=== PATIENT | male | born 1940 | race Caucasian/White ===

== ENCOUNTER 2018-11-06 00:55 | Inpatient (IN) | payer OTHER, MEDICARE ==
[2018-11-06 02:10] LABS: Absolute Lymphocytes (CBC) 0.1 K/uL (0.7-4.9); Basophils % 0.1 % (0-1.3); Hematocrit 32.2 % (39.6-49.0); Lymphocytes % 1.7 % (15.3-44.8); MPV 8.3 fL (7.6-11.3); RBC Red Blood Cell Count 3.58 M/uL (4.33-5.43)
[2018-11-06 02:11] LABS: Protime INR 1.38
[2018-11-06] MEDS ORDERED: D50W 25 GM/50 ML SYRINGE IV ONE ×2 (02:38→17:06)
[2018-11-06 02:53] LABS: Albumin 3.1 g/dL (3.4-5.0); Bilirubin Direct 0.7 mg/dL (0-0.2); Potassium 3.9 mmol/L (3.5-5.1); Troponin (Emerg Dept Use Only) 0.32 ng/mL (0.0-0.045)
--- NOTE | 2018-11-06 03:13 | EDPHYS ---
Physician Documentation [facility] Name: Vimal Matta Age: 77 yrs Sex: Male : 1940 Arrival Date: 11/06/2018 Time: 00:58 Bed 3 Private MD: ED Physician Altaf Ivy HPI: 11/06 02:49 This 77 yrs old Male presents to ER via EMS with complaints of Low Blood wa Sugar. 02:50 The patient presents with decreased mental status. Onset: The symptoms/episode wa began/occurred just prior to arrival. Possible causes: low blood sugar, the patient takes and oral hypoglycemic, the patient apparently forgot to eat. Associated signs and symptoms: Pertinent positives: weakness, Pertinent negatives: abdominal pain, chest pain, diarrhea, dizziness, headache. Current symptoms: In the emergency department the patient's symptoms have resolved, the patient is alert and fully oriented, has normal speech, has normal responsiveness. Patient's baseline: Neuro: alert and fully oriented, Motor: no deficits, Ambulation: walks without assistance, Speech: normal, The patient has a previous history of HTN and COPD. The patient has not experienced similar symptoms in the past. The patient has not recently seen a physician. pt noted s/p fall. EMS states pt noted on floor. BG noted 40. pt responded fully to D50 and became alert in route to ED. Historical: - Allergies: 01:06 No Known Allergies; ak1 - Home Meds: 01:06 atorvastatin oral oral [Active]; Glimepiride Oral [Active]; Lisinopril Oral [Active]; ak1 Metformin Oral [Active]; Metoprolol Tartrate Oral [Active]; - PMHx: 01:06 Diabetes - NIDDM; CHF; COPD; High Cholesterol; ak1 - PSHx: 01:06 Appendectomy; Hernia repair; ak1 - Immunization history:: Adult Immunizations unknown. - Social history:: Smoking status: Patient uses tobacco products, smokes one pack cigarettes per day. - Ebola Screening: : No symptoms or risks identified at this time. - Family history:: not pertinent. - Hospitalizations: : No recent hospitalization is reported. ROS: 02:53 Constitutional: Negative for fever, chills, and weight loss, Eyes: Negative for injury, wa pain, redness, and discharge, Neck: Negative for injury, pain, and swelling, Cardiovascular: Negative for chest pain, palpitations, and edema, Abdomen/GI: Negative for abdominal pain, nausea, vomiting, diarrhea, and constipation, Back: Negative for injury and pain, : Negative for injury, bleeding, discharge, and swelling, MS/Extremity: Negative for injury and deformity, Skin: Negative for injury, rash, and discoloration, Psych: Negative for depression, anxiety, suicide ideation, homicidal ideation, and hallucinations. 02:53 ENT: Positive for sinus congestion, Negative for ear pain. 02:53 Respiratory: Positive for cough, Negative for shortness of breath, sputum production. 02:53 Neuro: Positive for altered mental status, Negative for dizziness, headache. Exam: 02:54 Constitutional: This is a well developed, well nourished patient who is awake, alert, wa and in no acute distress. Head/Face: Normocephalic, atraumatic. Eyes: Pupils equal round and reactive to light, extra-ocular motions intact. Lids and lashes normal. Conjunctiva and sclera are non-icteric and not injected. Cornea within normal limits. Periorbital areas with no swelling, redness, or edema. ENT: Nares patent. No nasal discharge, no septal abnormalities noted. Tympanic membranes are normal and external auditory canals are clear. Oropharynx with no redness, swelling, or masses, exudates, or evidence of obstruction, uvula midline. Mucous membranes moist. Neck: Trachea midline, no thyromegaly or masses palpated, and no cervical lymphadenopathy. Supple, full range of motion without nuchal rigidity, or vertebral point tenderness. No Meningismus. Chest/axilla: Normal chest wall appearance and motion. Nontender with no deformity. No lesions are appreciated. Cardiovascular: Regular rate and rhythm with a normal S1 and S2. No gallops, murmurs, or rubs. Normal PMI, no JVD. No pulse deficits. Abdomen/GI: Soft, non-tender, with normal bowel sounds. No distension or tympany. No guarding or rebound. No evidence of tenderness throughout. Back: No spinal tenderness. No costovertebral tenderness. Full range of motion. MS/ Extremity: Pulses equal, no cyanosis. Neurovascular intact. Full, normal range of motion. Neuro: Awake and alert, GCS 15, oriented to person, place, time, and situation. Cranial nerves II-XII grossly intact. Motor strength 5/5 in all extremities. Sensory grossly intact. Cerebellar exam normal. Normal gait. Psych: Awake, alert, with orientation to person, place and time. Behavior, mood, and affect are within normal limits. 02:54 Respiratory: the patient does not display signs of respiratory distress, Respirations: normal, Breath sounds: wheezing: that is mild, is scattered, Respiratory rate: nml 02:54 Neuro: Orientation: is normal, Mentation: is normal, Cranial nerves: grossly normal, Motor: is normal. Vital Signs: 01:01 BP 138 / 77; Pulse 100; Resp 24; Temp 98.1(TE); Pulse Ox 95% on R/A; Weight 72.57 kg ak1 (R); Height 5 ft. 10 in. (177.80 cm); Pain 0/10; 01:30 BP 129 / 83; Pulse 52; Resp 22; Pulse Ox 91% on R/A; ak1 01:54 Pulse 85; Resp 22; Pulse Ox 93% on 2 lpm NC; ak1 02:43 BP 111 / 75; Pulse 97; Resp 18; Pulse Ox 94% on 2 lpm NC; Pain 0/10; ak1 04:09 BP 126 / 57; Pulse 77; Resp 20; Temp 98.2; Pulse Ox 91% on 2 lpm NC; Pain 0/10; ak1 01:01 Body Mass Index 22.96 (72.57 kg, 177.80 cm) ak1 MDM: 01:11 Patient medically screened. wv 03:02 Differential Diagnosis: CVA, electrolyte abnormality, hypoglycemia, sepsis, UTI. Data wv reviewed: nurses notes, EMS record, lab test result(s), EKG, radiologic studies. 03:02 Test interpretation: by ED physician or midlevel provider: EKG: interp by nm: HR 86. wa multiple PVCs. diffuse ST-T changes. . Test interpretation: by ED physician or midlevel provider: labs noted for low Na of 132. renal insuff 38/1.61. elevated liver enzymes AST 125, ALT 96. anemia 11.0/32.2. low plt 119. elevated troponin 0.32. BNP 79069. CXR: cardiomegaly. CHF. Response to treatment: the patient's symptoms have mildly improved after treatment. Physician consultation: Barb Gamino MD. Admission orders: after a detailed discussion of the patient's condition and case, the admit orders are written by me. ED course: hypoglycemia on glymeperide. noted decreased glucose required another round of D50. given a meal. will admit due to hypoglycemia on sulfonylurea. noted CHF. noted NSTEMI. will give a dose of lovenox. 03:37 Test interpretation: by ED physician or midlevel provider: noted bandemia. will cover wa with a dose of abx. will check blood cultures. 11/06 01:00 Order name: glucometer results - FOR PT WITH NO ID; Complete Time: 02:56 em1 11/06 01:42 Order name: Basic Metabolic Panel; Complete Time: 02:56 wv 11/06 01:42 Order name: CBC with Diff wv 11/06 01:42 Order name: LFT's; Complete Time: 02:57 wv 11/06 01:42 Order name: Magnesium; Complete Time: 02:58 wv 11/06 01:42 Order name: NT PRO-BNP; Complete Time: 02:57 wv 11/06 01:42 Order name: PT-INR; Complete Time: 02:58 wv 11/06 01:42 Order name: Troponin (emerg Dept Use Only); Complete Time: 02:58 wv 11/06 02:19 Order name: Manual Differential [facility] 11/06 02:50 Order name: Flu wv 11/06 03:39 Order name: Troponin I [facility] 11/06 03:39 Order name: Troponin I [facility] 11/06 03:39 Order name: Troponin I [facility] 11/06 03:44 Order name: Glucose, Ancillary Testing [facility] 11/06 01:42 Order name: XRAY Chest (1 view) wv 11/06 01:42 Order name: EKG; Complete Time: 01:44 wv 11/06 01:42 Order name: Cardiac monitoring; Complete Time: 01:54 wv 11/06 01:42 Order name: EKG - Nurse/Tech; Complete Time: 01:42 wv 11/06 01:42 Order name: IV Saline Lock; Complete Time: 01:43 wv 11/06 01:42 Order name: Labs collected and sent; Complete Time: 01:54 wv 11/06 01:42 Order name: O2 Per Protocol; Complete Time: 01:43 11/06 01:42 Order name: O2 Sat Monitoring; Complete Time: 01:43 11/06 03:39 Order name: Consistent Carb (ADA) 1800 Bhupinder EDMS 11/06 01:42 Order name: Oxygen; Complete Time: 01:42 wv 11/06 02:19 Order name: Accucheck Blood Glucose; Complete Time: 02:33 Administered Medications: 02:41 Drug: D50W 50 ml Route: IVP; Site: left antecubital; ak1 03:07 Follow up: Response: No adverse reaction ak1 02:49 CANCELLED (Physician Discretion): D50W 50 ml IVP once; (1 amp) 03:25 Drug: Lovenox 70 mg Route: Sub-Q; Site: right lower abdomen; ak1 03:43 Follow up: Response: No adverse reaction ak1 03:25 Drug: Lasix 40 mg Route: IVP; Site: left antecubital; ak1 03:44 Follow up: Response: No adverse reaction ak1 03:26 Drug: Aspirin Chewable Tablet 324 mg Route: PO; ak1 03:43 Follow up: Response: No adverse reaction ak1 03:58 Drug: Rocephin - (cefTRIAXone) 2 grams Route: IVPB; Infused Over: 30 mins; Site: left ak1 antecubital; 04:17 Follow up: IV Status: Completed infusion; IV Intake: 100ml ak1 04:17 Drug: Zithromax 500 mg Route: IVPB; Infused Over: 1 hrs; Site: left antecubital; ak1 04:47 Follow up: IV Status: Infusion continued upon admission ak1 Point of Care Testing: Blood Glucose: 02:33 Blood Glucose: 56 mg/dL; ak1 04:55 Blood Glucose: 166 mg/dL; ak1 Ranges: Critical Glucose Levels:Adult <50 mg/dl or >400 mg/dl <40 mg/dl or >180 mg/dl Disposition: 11/06/18 03:10 Hospitalization ordered by Fredy Clemens for Inpatient Admission. Preliminary diagnosis are acute AMS, hypoglycemia - on sulfonylurea, CHF, NSTEMI. - Bed requested for Telemetry/MedSurg (Inpatient). - Status is Inpatient Admission. ak1 - Condition is Stable. - Problem is new. - Symptoms have improved. UTI on Admission? No Signatures: Dispatcher [employer] EDDC Jaky Lomeli RN RN ak1 Mei Galindo RN RN Altaf Ivy MD MD wv Corrections: (The following items were deleted from the chart) 02:49 02:48 D50W 50 ml IVP once; (1 amp) ordered. [facility] 03:42 03:10 Hospitalization Ordered by Fredy Clemens MD for Inpatient Admission. Preliminary cg diagnosis is acute AMS; hypoglycemia - on sulfonylurea; CHF; NSTEMI. Bed requested for Telemetry/MedSurg (Inpatient). Status is Inpatient Admission. Condition is Stable. Problem is new. Symptoms have improved. UTI on Admission? No. wv 05:03 03:42 11/06/2018 03:10 Hospitalization Ordered by Fredy Clemens MD for Inpatient ak1 Admission. Preliminary diagnosis is acute AMS; hypoglycemia - on sulfonylurea; CHF; NSTEMI. Bed requested for Telemetry/MedSurg (Inpatient). Status is Inpatient Admission. Condition is Stable. Problem is new. Symptoms have improved. UTI on Admission? No. cg
--- NOTE | 2018-11-06 03:13 | ER ---
Nurse's Notes [facility] Name: Vimal Matta Age: 77 yrs Sex: Male : 1940 Arrival Date: 11/06/2018 Time: 00:58 Bed 3 Private MD: Diagnosis: acute AMS;hypoglycemia - on sulfonylurea;CHF;NSTEMI Presentation: 11/06 01:02 Presenting complaint: EMS states: pt was found on the floor between his bed and the ak1 wall. pt was A\T\OX 0 per EMS with a FSBG 45. D10 25 grams was given. pt was given 1 gram tylenol PO. pt was given 500mL NS. pt A\T\OX4 at this time. with FSBG 132 in ER3. Transition of care: patient was not received from another setting of care. Onset of symptoms is unknown. Risk Assessment: Do you want to hurt yourself or someone else? Patient reports no desire to harm self or others. Initial Sepsis Screen: Does the patient meet any 2 criteria? No. Patient's initial sepsis screen is negative. Does the patient have a suspected source of infection? No. Patient's initial sepsis screen is negative. Care prior to arrival: None. Medication(s) given:. 01:02 Method Of Arrival: EMS: [facility] ak 01:02 Acuity: DIANELYS 3 ak1 Triage Assessment: 01:06 General: Appears in no apparent distress. slender, Behavior is calm, cooperative, ak1 appropriate for age. Pain: Denies pain. EENT: No signs and/or symptoms were reported regarding the EENT system. Neuro: Level of Consciousness is awake, alert, obeys commands, Oriented to person, place, time, situation, Retail Coverage Merchandiser are equal bilaterally Moves all extremities. Gait is steady, Speech is normal. Cardiovascular: Patient's skin is warm and dry. Rhythm is sinus tachycardia. Respiratory: Airway is patent Respiratory effort is labored, Breath sounds are coarse. GI: No signs and/or symptoms were reported involving the gastrointestinal system. : No signs and/or symptoms were reported regarding the genitourinary system. Derm: No signs and/or symptoms reported regarding the dermatologic system. Musculoskeletal: No signs and/or symptoms reported regarding the musculoskeletal system. Historical: - Allergies: 01:06 No Known Allergies; ak1 - Home Meds: 01:06 atorvastatin oral oral [Active]; Glimepiride Oral [Active]; Lisinopril Oral [Active]; ak1 Metformin Oral [Active]; Metoprolol Tartrate Oral [Active]; - PMHx: 01:06 Diabetes - NIDDM; CHF; COPD; High Cholesterol; ak1 - PSHx: 01:06 Appendectomy; Hernia repair; ak1 - Immunization history:: Adult Immunizations unknown. - Social history:: Smoking status: Patient uses tobacco products, smokes one pack cigarettes per day. - Ebola Screening: : No symptoms or risks identified at this time. - Family history:: not pertinent. - Hospitalizations: : No recent hospitalization is reported. Screenin:08 Abuse screen: Denies threats or abuse. Denies injuries from another. Nutritional ak1 screening: No deficits noted. Tuberculosis screening: No symptoms or risk factors identified. Fall Risk None identified. Assessment: 01:07 Reassessment: Patient appears in no apparent distress at this time. No changes from ak1 previously documented assessment. see triage assessment. 02:42 Reassessment: pt given sandwich, soda, chips and fruit to eat for blood sugar lows. ak1 03:27 Reassessment: Patient appears in no apparent distress at this time. No changes from ak1 previously documented assessment. Patient and/or family updated on plan of care and expected duration. Pain level reassessed. Patient is alert, oriented x 3, equal unlabored respirations, skin warm/dry/pink. pt ate 75% of meal given. pt given urinal. at bedside. Patient states feeling better. Vital Signs: 01:01 BP 138 / 77; Pulse 100; Resp 24; Temp 98.1(TE); Pulse Ox 95% on R/A; Weight 72.57 kg ak1 (R); Height 5 ft. 10 in. (177.80 cm); Pain 0/10; 01:30 BP 129 / 83; Pulse 52; Resp 22; Pulse Ox 91% on R/A; ak1 01:54 Pulse 85; Resp 22; Pulse Ox 93% on 2 lpm NC; ak1 02:43 BP 111 / 75; Pulse 97; Resp 18; Pulse Ox 94% on 2 lpm NC; Pain 0/10; ak1 04:09 BP 126 / 57; Pulse 77; Resp 20; Temp 98.2; Pulse Ox 91% on 2 lpm NC; Pain 0/10; ak1 01:01 Body Mass Index 22.96 (72.57 kg, 177.80 cm) ak1 ED Course: 00:58 Patient arrived in ED. ak1 01:04 Triage completed. ak1 01:06 Arm band placed on Patient placed in an exam room, on a stretcher, on pulse oximetry. ak1 01:07 Maintain EMS IV. Dressing intact. Good blood return noted. Site clean \T\ dry. Gauge \T\ ak 1 site: 18g left AC. 01:08 Patient has correct armband on for positive identification. Bed in low position. Call ak1 light in reach. Side rails up X2. Adult w/ patient. Pulse ox on. NIBP on. 01:11 Altaf Ivy MD is Attending Physician. wa 01:19 aJky Lomeli, SONA is Primary Nurse. ak1 02:52 XRAY Chest (1 view) In Process Unspecified. EDMS 03:09 Fredy Clemens MD is Hospitalizing Provider. wa 03:23 Flu and/or RSV swab sent to lab. em1 04:01 Patient admitted, IV remains in place. ak1 04:01 No provider procedures requiring assistance completed. ak1 Administered Medications: 02:41 Drug: D50W 50 ml Route: IVP; Site: left antecubital; ak1 03:07 Follow up: Response: No adverse reaction ak1 02:49 CANCELLED (Physician Discretion): D50W 50 ml IVP once; (1 amp) wa 03:25 Drug: Lovenox 70 mg Route: Sub-Q; Site: right lower abdomen; ak1 03:43 Follow up: Response: No adverse reaction ak1 03:25 Drug: Lasix 40 mg Route: IVP; Site: left antecubital; ak1 03:44 Follow up: Response: No adverse reaction ak1 03:26 Drug: Aspirin Chewable Tablet 324 mg Route: PO; ak1 03:43 Follow up: Response: No adverse reaction ak1 03:58 Drug: Rocephin - (cefTRIAXone) 2 grams Route: IVPB; Infused Over: 30 mins; Site: left ak1 antecubital; 04:17 Follow up: IV Status: Completed infusion; IV Intake: 100ml ak1 04:17 Drug: Zithromax 500 mg Route: IVPB; Infused Over: 1 hrs; Site: left antecubital; ak1 04:47 Follow up: IV Status: Infusion continued upon admission ak1 Point of Care Testing: Blood Glucose: 02:33 Blood Glucose: 56 mg/dL; ak1 04:55 Blood Glucose: 166 mg/dL; ak1 Ranges: Intake: 04:17 IV: 100ml; Total: 100ml. ak1 Outcome: 03:10 Decision to Hospitalize by Provider. wa 04:01 Admitted to Tele accompanied by tech, via wheelchair, with oxygen, with chart. ak1 04:01 Condition: improved 04:01 Instructed on the need for admit. 05:03 Patient left the ED. ak1 Signatures: Dispatcher [employer] Ace Luz em1 Jaky Lomeli, SONA RN ak1 Altaf Ivy MD MD nh
[2018-11-06] MEDS ORDERED: ASPIRIN 81 MG CHEWABLE TABLET ONE (03:21)
[2018-11-06] MEDS ORDERED: ENOXAPARIN 80 MG/0.8 ML SQ ONE (03:21)
[2018-11-06] MEDS ORDERED: FUROSEMIDE 40 MG/4 ML VIAL ONE (03:21)
[2018-11-06 03:32] LABS: Blood Morphology Comment NOTED (NOT SEEN); Platelet Estimate ADEQ
[2018-11-06] MEDS ORDERED: ALBUTEROL 2.5 MG/3 ML NEB SOL NEB PRN ×2 (03:34→14:00)
[2018-11-06] MEDS ORDERED: IPRATROPIUM BROM 0.5MG/2.5ML NEB PRN ×2 (03:34→14:00)
[2018-11-06] MEDS ORDERED: NA CHLORIDE 0.9% 100 ML IV ONE (03:52)
[2018-11-06] MEDS ORDERED: CEFTRIAXONE 1000 MG/VIAL ONE (03:52)
[2018-11-06] MEDS ORDERED: NA CHLORIDE 0.9% 0 ML ONE (03:53)
[2018-11-06] MEDS ORDERED: AZITHROMYCIN 500 MG INJ IVPB ONE (03:53)
[2018-11-06] MEDS ORDERED: NA CHLORIDE 0.9% 250 ML ONE (03:54)
[2018-11-06 05:17] VITALS: BMI 24.2
[2018-11-06] MEDS ORDERED: GLIMEPIRIDE 2 MG TABLET PO SCH (08:00)
[2018-11-06] MEDS: ENOXAPARIN 40 MG/0.4 ML SQ SCH ×2 (08:39→19:25)
--- NOTE | 2018-11-06 08:57 | RAD REPORT ---
EXAM DESCRIPTION: RAD - Chest Single View - 11/06/2018 2:51 am CLINICAL HISTORY: Shortness of breath, altered mental status, history of CHF and COPD, hypoglycemia COMPARISON: None. TECHNIQUE: AP portable chest image was obtained 0203 hours . FINDINGS: Exam is motion degraded limiting assessment. Left upper lobe infiltrate is not excluded an d can be re-evaluated with follow-up imaging to clear motion artifact. Right lung garibay appear clear . Cardiomegaly is present. Acute vascular engorgement is not seen. Trachea is midline. No pneumothorax is present. No large pleural effusion identified. No acute bony abnormality seen. No acute aortic fi ndings suspected. IMPRESSION: Cardiomegaly without other findings of significant failure or volume overload. Motion degradation limits assessment. A left upper lobe early infiltrate is not excluded.
[2018-11-06] MEDS ORDERED: ASPIRIN 325 MG TAB PO SCH (09:00)
[2018-11-06] MEDS ORDERED: LISINOPRIL 10 MG TAB PO SCH (09:00)
[2018-11-06 10:33] LABS: Urine Appearance CLOUDY; Urine Bilirubin NEGATIVE (NEG); Urine Blood 1+ (NEG); Urine Color YELLOW; Urine Glucose NEGATIVE (NEG); Urine Protein TRACE (NEG); Urine Urobilinogen 0.2 mg/dL (0.2-1.0)
[2018-11-06 11:04] LABS: Urine Microscopic Reflex ORDER UMIC
[2018-11-06 11:05] LABS: Urine Bacteria 20-50 /HPF (NONE SEEN); Urine Culture Reflex Order REFLEXED; Urine Mucus SLIGHT /HPF (NONE SEEN); Urine RBC <5 /HPF (NONE SEEN)
--- NOTE | 2018-11-06 12:54 | RAD REPORT ---
EXAM DESCRIPTION: US - Abdomen Exam Complete - 11/06/2018 12:43 pm CLINICAL HISTORY: Fall, AMS, Hypoglycemia COMPARISON: No comparisons None. FINDINGS: Gallbladder size is normal. No gallstones, wall thickening or pericholecystic fluid. Commo n bile duct is normal with no common duct stone identified. Liver and spleen are normal in size and show no suspicious findings. A small round hyperechoic focus in the central spleen is present not regarded as significant. Small accessory splenic nodule present. The pancreas is normal. No hydronephrosis or suspicious mass in either kidney. Aorta is normal is size. No ascites or bulky lymphadenopathy. No IVC abnormality. Minimal amount of free fluid is seen adjacent to the liver in the right upper quadrant. IMPRESSION: No gallbladder or biliary tree abnormality. Minimal free fluid adjacent to the liver with no focal liver abnormality seen.
[2018-11-06] MEDS: FUROSEMIDE 20 MG TABLET PO SCH (12:57)
[2018-11-06] MEDS ORDERED: NA CHLORIDE 0.9% 1,000 ML IV SCH (13:00)
--- NOTE | 2018-11-06 13:17 | EKG ---
Test Date: 2018-11-06 Test Time: 01:07:00 Cook Dinner: SHANTHI MEASUREMENT RESULTS: Intervals: Rate: 86 OR: 116 QRSD: 108 QT: 414 QTc: 495 [place]: P: 82 OR: 116 QRS: 40 T: 64 INTERPRETIVE STATEMENTS: atrial fibrillationAnteroseptal infarct, age undetermined Abnormal ECG No previous ECG available for comparison Electronically Signed On 11-06-18 13:17:28 CDT by Daniel Gutierrez
[2018-11-06] MEDS ORDERED: ASPIRIN 81 MG CHEWABLE TABLET PO SCH (16:30)
--- NOTE | 2018-11-06 18:17 | P.HP ---
Certification for Inpatient Patient admitted to: Observation With expected LOS: <2 Midnights Practitioner: I am a practitioner with admitting privileges, knowledge of patient current condition, hospital course, and medical plan of care. Services: Services provided to patient in accordance with Admission requirements found in Title 42 Section 412.3 of the Code of Federal Regulations Patient History Date of Service: 11/06/18 Reason for admission: LOW GLUCOSE History of Present Illness: MR. 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 HE IS A DIABETIC AND HAS BEEN TRYING TO BRING GLUCOSE DOWN. HE HAD LOW GLUCOSE LAST NIGHT AND HE CAME HERE. HE DID NOT HAVE ANY MORE DYSPNEA THAN USUAL. HE DID NOT HAVE CHEST PAIN. ER ADMITTED HIM ALSO FOR NSTMI. Allergies No Known Allergies Allergy (Unverified 11/06/18 05:16) Home Medications: Atorvastatin Calcium 1 tab PO DAILY 11/06/18 Furosemide 1 tab PO DAILY 11/06/18 Glimepiride 1 tab PO DAILY 11/06/18 Levothyroxine Sodium 1 tab PO DAILY 11/06/18 Lisinopril 1 tab PO DAILY 11/06/18 Metoprolol Succinate 1 tab PO DAILY 11/06/18 - Past Medical/Surgical History Has patient received pneumonia vaccine in the past: Yes Diabetic: Yes -: DM NIDDM -: CHF -: High Cholesterol -: Prostate Cancer with radiation -: Appendectomy -: Hernia repair - Family History Mother -: Diabetes Father -: Heart disease, Kidney disease Brother -: Other (see notes) Notes: Bone problems - Social History Smoking Status: Current every day smoker CD- Drugs: No Caffeine use: Yes Place of Residence: Home Review of Systems 10-point ROS is otherwise unremarkable General: Weakness, Malaise Respiratory: Shortness of Breath (NO CHANGES FROM BEFORE.) Physical Examination - Vital Signs Temperature: 100.4 F Blood Pressure: 97/56 Pulse: 97 Respirations: 17 Pulse Ox (%): 94 - Physical Exam General: Mild distress HEENT: Atraumatic, PERRLA, Mucous membr. moist/pink, EOMI, Sclerae nonicteric Neck: Supple, 2+ carotid pulse no bruit, No LAD, Without JVD or thyroid abnormality Respiratory: Diminished Cardiovascular: Regular rate/rhythm, Normal S1 S2 Gastrointestinal: Normal bowel sounds, No tenderness Musculoskeletal: No tenderness Integumentary: No rashes Neurological: Normal gait, Normal speech, Normal strength at 5/5 x4 extr, Normal tone, Normal affect Lymphatics: No axilla or inguinal lymphadenopathy - Studies Laboratory Data (last 24 hrs) 11/06/18 01:35: PT 16.1 H, INR 1.38 11/06/18 01:35: WBC 5.9, Hgb 11.0 L, Hct 32.2 L, Plt Count 119 L 11/06/18 01:35: Sodium 132 L, Potassium 3.9, BUN 38 H, Creatinine 1.61 H, Glucose 80, Magnesium 2.0, Total Bilirubin 1.0, AST 125 H, ALT 96 H, Alkaline Phosphatase 118 H Microbiology Data (last 24 hrs): 11/06/18 03:20 Nasopharnyx Influenza Type A Antigen Screen - Final 11/06/18 03:20 Nasopharnyx Influenza Type B Antigen Screen - Final Assessment and Plan - Problems (Diagnosis) (1) Hypoglycemia Current Visit: Yes Status: Acute Plan: DIABETIC. USUALLY GOOD ON AMARYL. INFECTION MAY HAVE TRIGGERED LOW GLUCOSE EPISODES. (2) Bacterial pneumonia Current Visit: Yes Status: Acute Plan: BLOOD CULTURES TWO. LEVAQUIN IV TODAY. MAY NOT ABSORB WELL ORALLY. HAS CHF BY HISTORY. (3) Congestive cardiomyopathy Current Visit: Yes Status: Chronic Plan: ON LASIX. LISINOPRIL METOPROLOL. CXR SHOWS NO CHF. SOME MORE DYSPNEA. I WILL STOP FLUIDS FOR NOW. (4) Diabetes Current Visit: Yes Status: Acute Qualifiers: Diabetes mellitus type: type 2 Diabetes mellitus salvage determiner insulin use: without intermediate use Diabetes mellitus complication status: with circulatory complication - Advance Directives Does patient have a Living Will: Yes Does patient have a Durable POA for Healthcare: Yes
[2018-11-06] MEDS: METOPROLOL XL 25 MG TAB PO SCH (19:25)
[2018-11-06] MEDS: ATORVASTATIN 20 MG TAB PO SCH (19:25)
[2018-11-06] MEDS: IPRATROPIUM BROM 0.5MG/2.5ML NEB SCH (19:45)
[2018-11-06] MEDS: LEVALBUTEROL 0.63 MG/3 ML NEB NEB SCH (19:45)
[2018-11-06] MEDS: Levofloxacin 250mg IV 250 MG/50 ML BAG IV SCH (20:53)
[2018-11-06] MEDS ORDERED: ACETAMINOPHEN 325 MG TABLET PO PRN (21:16)
[2018-11-07] MEDS: IPRATROPIUM BROM 0.5MG/2.5ML NEB SCH ×4 (01:30→20:00)
[2018-11-07] MEDS: LEVALBUTEROL 0.63 MG/3 ML NEB NEB SCH ×4 (01:30→20:00)
[2018-11-07] MEDS: LEVOTHYROXINE SOD 0.075 MG TAB PO SCH (05:32)
[2018-11-07] MEDS: METOPROLOL XL 25 MG TAB PO SCH (05:33)
[2018-11-07] MEDS: D50W 25 GM/50 ML SYRINGE IV PRN ×2 (05:38→07:33)
--- NOTE | 2018-11-07 07:11 | EKG ---
Test Date: 2018-11-06 Test Time: 21:37:09 Refinery Pipeline Operator: RT MEASUREMENT RESULTS: Intervals: Rate: 99 ME: QRSD: 108 QT: 362 QTc: 464 [place]: P: ME: QRS: -4 T: 202 INTERPRETIVE STATEMENTS: Atrial fibrillation with premature ventricular or aberrantly conducted complexes Septal infarct, age undetermined ST & T wave abnormality, consider lateral ischemia or digitalis effect Abnormal ECG Compared to ECG 11/06/2018 21:36:34 Ventricular premature complex(es) now present Sinus rhythm no longer present Myocardial infarct finding still present ST (T wave) deviation still present Possible ischemia still present Electronically Signed On 11-07-18 07:10:42 CDT by Chandan Stringer
--- NOTE | 2018-11-07 07:11 | EKG ---
Test Date: 2018-11-06 Test Time: 21:36:34 Site Promotion Agent: RT MEASUREMENT RESULTS: Intervals: Rate: 91 NV: 116 QRSD: 104 QT: 370 QTc: 455 [place]: P: NV: 116 QRS: -3 T: 143 INTERPRETIVE STATEMENTS: Normal sinus rhythm Septal infarct, age undetermined ST & T wave abnormality, consider lateral ischemia Abnormal ECG Compared to ECG 11/06/2018 01:07:00 ST (T wave) deviation now present Possible ischemia now present Myocardial infarct finding still present Electronically Signed On 11-07-18 07:10:46 CDT by Chandan Stringer
[2018-11-07] MEDS: ENOXAPARIN 40 MG/0.4 ML SQ SCH ×2 (08:14→21:40)
[2018-11-07] MEDS: FUROSEMIDE 20 MG TABLET PO SCH (08:15)
[2018-11-07] MEDS: ASPIRIN EC 81 MG TAB PO SCH (08:15)
--- NOTE | 2018-11-07 09:49 | CON ---
Date of Consultation: 11/06/[address] Clemens's service on 11/06/2018. He was seen on 11/06/2018. Reason For Consultation: Altered mental status, hypoglycemia, and elevated troponin. History Of Present Illness: Mr. Matta is a 77-year-old white male. He is a patient of Dr. Clemens. He has a history of cardiomyopathy with an ejection fraction of about 25%. He has been followed by Dr. Pereira in [place]. He has been offered defibrillator, but he refused. He did not have any david st pain or shortness of breath, nausea, vomiting, or diaphoresis. He denied any PND, orthopnea, peda l edema, palpitations, or syncope. He just got slightly confused and noted to have hypoglycemia. Past Medical History: Includes hypertension, diabetes, dyslipidemia, hypothyroidism, chronic systoli c congestive heart failure, and COPD. Mr. Matta has had heart catheterization showing moderate cor onary artery disease of RCA, but no focal stenosis. Allergies: NONE. Review of Systems: Negative. Social History: Negative. Family History: Noncontributory. Medications: At home include Lasix, Lipitor, glimepiride, Synthroid, lisinopril, and metoprolol. Physical Examination: General: When I saw him, he was very pleasant, alert, and oriented x3. He is in atrial fibrillation HEENT: Negative. Neck: Supple without any bruit, lymphadenopathy, JVD, or thyromegaly. Chest: Clear to auscultation and percussion. Cardiac: Revealed atrial fibrillation. No murmurs, gallops, or rubs. Abdomen: Benign. Extremities: Revealed no clubbing, cyanosis, or edema. NEUROLOGIC: Nonfocal. SKIN: Dry and intact. Pulses are present bilaterally distally. Diagnostic Data: Showed mild increase in liver function tests. He had a normal white count with 10% bands consistent with a left shift. His creatinine is 1.61. He was hyponatremic. His troponin was 0.96 and 1.01. His BNP was 82,524. Impression And Plan: 1.Chronic systolic congestive heart failure that seems to be stable. I agree with his present medic al regimen which includes lisinopril, metoprolol, and Lasix, although I am wondering he is not on Ent lisa. I will check with Dr. Clemens. He has an ejection fraction of 20% to 25% but he is very hesita nt without a defibrillator. We addressed that issue with him and his family who are was in the room. I think he will benefit greatly from a defibrillator. Again, Entresto may be a good option as well . The other concern is atrial fibrillation. I am not so sure if this is plan . I will di scuss the case with Dr. Clemens further. For now, I believe some gentle hydration may be beneficial __ that is concerning. He has already received 1 dose of antibiotics. An echocardiogram is pe nding for tomorrow. We will see what that shows, but I am comfortable with him going home tomorrow a nd follow him with Dr. Pereira in the near future. NICOLETTE/ULISES Voice ID: [id number] Report ID: [id number]
--- NOTE | 2018-11-07 09:56 | CON ---
History Of Present Illness: Mr. Matta came to the hospital because his blood sugar got low. He was unconscious, resuscitated with intravenous glucose. He was not having chest pain or shortness of breath, but he has abnormal troponins. At this time, it is 1.01. He has a very elevated internal proBNP. He is aware of having cardiomyopathy. 8 months ago, a cardiac cath was done. No stents or other interventions were done. The defibrillator was recommended to him. Apparently, the patient refused and he does have a history of an arrhythmia, but the patient is not able to tell us what kind of heart rhythm problem he has. He was in atrial fibrillation briefly when he came. Medications: His outpatient medications are metoprolol, lisinopril, levothyroxine, glimepiride, furosemide, and atorvastatin. Allergies: HE HAS NO ALLERGIES. Social History: He uses tobacco. Assessment And Plan: He has underlying diabetes, hypothyroidism, cardiomyopathy without significant CAD, transiet atrial fibrillation and transient hypoglycemia, probably related. His troponin elevation is of concern. I think his usual box order person from [place] would be better able to relate what is happening to the actual cath data and going from the verbal report from the patient, so perhaps Dr. Clemens could encourage the patient to see his box order person rapidly or even contact that physician and see what he thinks. I think he is probably ready to be discharged. His main reason for coming in was hypoglycemia that has resolved. SWEETIE/ULISES Voice ID: [id number] Report ID: [id number] KANE
--- NOTE | 2018-11-07 15:48 | ECHO ---
HEIGHT: 5 ft 10 in WEIGHT: 168 lb 14.4 oz DATE OF STUDY: 11/07/[address]: Daniel Gutierrez MD 2-DIMENSIONAL: YES M.MODE: YES DOPPLER: YES COLOR FLOW: YES TDS: NO PORTABLE: NO DEFINITY: NO BUBBLE STUDY: NO DIAGNOSIS: POSITIVE TROPONIN, ATRIAL FIBRILLATION CARDIAC HISTORY: CATHERIZATION: NO SURGERY: NO PROSTHETIC VALVE: NO PACEMAKER: NO MEASUREMENTS (cm) DIASTOLIC (NORMALS) SYSTOLIC (NORMALS) IVSd 1.0 (0.6-1.2) LA Diam 4.3 (1.9-4.0) LVEF 19% LVIDd 7.4 (3.5-5.7) LVIDs 6.7 (2.0-3.5) %FS 9% LVPWd 1.1 (0.6-1.2) Ao Diam 3.9 (2.0-3.7) 2 DIMENSIONAL ASSESSMENT: RIGHT ATRIUM: DILATED LEFT ATRIUM: DILATED RIGHT VENTRICLE: DILATED LEFT VENTRICLE: DILATED TRICUSPID VALVE: NORMAL MITRAL VALVE: NORMAL PULMONIC VALVE: NORMAL AORTIC VALVE: NORMAL PERICARDIAL EFFUSION: NONE AORTIC ROOT: NORMAL LEFT VENTRICULAR WALL MOTION: SEVERE GLOBAL HYPOKINSIS. DOPPLER/COLOR FLOW: MILD AORTIC, MITRAL AND TRICUSPID REGURGITATION. ESTIMATED RIGHT VENTRICULAR SYSTOLIC PRESSURE 50mmHg. MODERATE PULMONARY HYPERTENSION. COMMENTS: FOUR CHAMBER DILATATION. SEVERELY DEPRESSED LEFT VENTRICULAR EJECTION FRACTION. MILD AORTIC, MITRAL AND TRICUSPID REGURGITATION. MODERATE PULMONARY HYPERTENSION. TECHNOLOGIST: AIMEE JOHNSON
[2018-11-07] MEDS: Levofloxacin 250mg IV 250 MG/50 ML BAG IV SCH (21:40)
[2018-11-07] MEDS: ATORVASTATIN 20 MG TAB PO SCH (21:40)
[2018-11-08] MEDS: IPRATROPIUM BROM 0.5MG/2.5ML NEB SCH ×3 (02:00→13:15)
[2018-11-08] MEDS: LEVALBUTEROL 0.63 MG/3 ML NEB NEB SCH ×3 (02:00→13:15)
--- NOTE | 2018-11-08 02:24 | PN ---
Subjective: Patient is doing a lot better. He denies any chest pain, nausea, or vomiting. His hypo glycemia has improved. Physical Examination: Vital Signs: Blood pressure 111/61. Temperature today is afebrile. Pulse is 92. HEENT: Minimal JVD, which is chronic for him. Chest: Decreased breath sounds bilaterally. Heart: Regular. Abdomen: No guarding, no rebound, no rigidity. Assessment And Plannin.Hypoglycemia is resolved. I believe the hypoglycemia was because of the infection on top of his d iabetes, which is coming from pulmonary origin. 2.Congestive cardiomyopathy, EF of 19%. Managed by Dr. Pereira and Dr. Stringer at this point. He mcnamara s refused defibrillator and he has refused to do a coronary angiogram offered by Dr. Pereira before. He is stable currently with overall guarded prognosis. LITTLED/MODL Voice ID: [id number] Report ID: [id number]
[2018-11-08] MEDS: D50W 25 GM/50 ML SYRINGE IV PRN (04:30)
[2018-11-08 05:20] LABS: Absolute Lymphocytes (CBC) 0.2 K/uL (0.7-4.9); Basophils % 0.2 % (0-1.3); Hematocrit 33.1 % (39.6-49.0); Lymphocytes % 2.5 % (15.3-44.8); MPV 8.7 fL (7.6-11.3); RBC Red Blood Cell Count 3.71 M/uL (4.33-5.43)
[2018-11-08 05:46] LABS: Albumin 2.7 g/dL (3.4-5.0); Bilirubin Direct 0.5 mg/dL (0-0.2); Bilirubin Total 0.8 mg/dL (0.2-1.0); Potassium 3.9 mmol/L (3.5-5.1); Protein, Total 5.9 g/dL (6.4-8.2)
[2018-11-08] MEDS: METOPROLOL XL 25 MG TAB PO SCH (06:31)
[2018-11-08] MEDS: LEVOTHYROXINE SOD 0.075 MG TAB PO SCH (06:31)
[2018-11-08] MEDS ORDERED: SODIUM CHLORIDE 0.9% 10ML INJ IV SCH (07:00)
[2018-11-08] MEDS ORDERED: COSYNTROPIN 0.25 MG VIAL IV SCH (07:00)
[2018-11-08 08:34] VITALS: O2SAT 96
[2018-11-08] MEDS: ENOXAPARIN 40 MG/0.4 ML SQ SCH (08:37)
[2018-11-08] MEDS: ASPIRIN EC 81 MG TAB PO SCH (10:09)
[2018-11-08] MEDS: FUROSEMIDE 20 MG TABLET PO SCH (10:09)
[2018-11-08 12:12] VITALS: BP 107/52; TEMP 97.6
--- NOTE | 2018-11-08 12:59 | P.DS ---
Admission Date: 11/06/18 Discharge Date: 11/08/18 Disposition: ROUTINE DISCHARGE Discharge Condition: SERIOUS Reason for Admission: LOW GLUCOSE - Problems (1) Hypoglycemia Current Visit: Yes Status: Acute (2) Bacterial pneumonia Current Visit: Yes Status: Acute (3) Congestive cardiomyopathy Current Visit: Yes Status: Chronic (4) Diabetes Current Visit: Yes Status: Acute Qualifiers: Diabetes mellitus type: type 2 Diabetes mellitus manager long term care insulin use: without manager long term care use Diabetes mellitus complication status: with circulatory complication Brief History of Present Illness: MR. 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 HE IS A DIABETIC AND HAS BEEN TRYING TO BRING GLUCOSE DOWN. HE HAD LOW GLUCOSE LAST NIGHT AND HE CAME HERE. HE DID NOT HAVE ANY MORE DYSPNEA THAN USUAL. HE DID NOT HAVE CHEST PAIN. ER ADMITTED HIM ALSO FOR NSTMI. MR. ENGLISH IS LOT BETTER. HE IS STILL DYSPNEIC AT REST. HIS EF IF 20%. HE DOES NOT WANT DEFIBRILATOR OR CATH. DR. TAYLOR AND DR. BHAKTA HAS BOTH DISCUSSED WITH HIM. HE CAME FOR LOW GLUCOSE AND WAS FROM HAVING PNEUMONIA. HIS ACTH TEST IS NEGATIVE. HE IS STABLE TO GO HOME WITH ORAL ABX. AND REDUCED GLIMEPRIDE. FU IN ONE WEEK. Vital Signs/Physical Exam: Temp Pulse Resp BP Pulse Ox 97.6 F 62 22 H 107/52 L 99 11/08/18 12:00 11/08/18 12:00 11/08/18 12:00 11/08/18 12:00 11/08/18 12:00 Laboratory Data at Discharge: WBC 6.5 K/uL (4.3-10.9) 11/08/18 04:55 Hgb 11.8 g/dL (13.6-17.9) L 11/08/18 04:55 Hct 33.1 % (39.6-49.0) L 11/08/18 04:55 Plt Count 157 K/uL (152-406) D 11/08/18 04:55 PT 16.1 SECONDS (9.5-12.5) H 11/06/18 01:35 INR 1.38 11/06/18 01:35 Sodium 135 mmol/L (136-145) L 11/08/18 04:55 Potassium 3.9 mmol/L (3.5-5.1) 11/08/18 04:55 BUN 48 mg/dL (7-18) H 11/08/18 04:55 Creatinine 1.57 mg/dL (0.55-1.3) H 11/08/18 04:55 Glucose 133 mg/dL (74-106) H 11/08/18 04:55 Magnesium 2.0 mg/dL (1.8-2.4) 11/06/18 01:35 Total Bilirubin 0.8 mg/dL (0.2-1.0) 11/08/18 04:55 AST 137 U/L (15-37) H 11/08/18 04:55 ALT 107 U/L (12-78) H 11/08/18 04:55 Alkaline Phosphatase 132 U/L (45-117) H 11/08/18 04:55 Troponin I 1.01 ng/mL (0.0-0.045) H* 11/06/18 10:08 LDL Cholesterol Direct Cancelled 11/08/18 05:00 Home Medications: Atorvastatin Calcium 1 tab PO DAILY 11/06/18 Furosemide 1 tab PO DAILY 11/06/18 Levothyroxine Sodium 1 tab PO DAILY 11/06/18 Lisinopril 1 tab PO DAILY 11/06/18 Metoprolol Succinate 1 tab PO DAILY 11/06/18 Glimepiride 2 mg PO DAILY #90 tablet 11/08/18 levoFLOXacin [Levaquin*] 500 mg PO DAILY #5 tab 11/08/18 New Medications: Glimepiride 2 mg PO DAILY #90 tablet levoFLOXacin [Levaquin*] 500 mg PO DAILY #5 tab
== END 2018-11-08 14:40 | disposition home or self-care (01) | DRG 637 ==
LOC: ER 00:55 → ERHOLD 03:44 → 4TH 04:53
PROVIDERS: ADMIT Internal Medicine; ATTEND Internal Medicine
DX: E11.649 Type 2 diabetes mellitus with hypoglycemia without coma (principal); J15.9 Unspecified bacterial pneumonia; I42.0 Dilated cardiomyopathy; I50.22 Chronic systolic (congestive) heart failure; E03.9 Hypothyroidism, unspecified; I48.91 Unspecified atrial fibrillation; I11.0 Hypertensive heart disease with heart failure; I25.10 Atherosclerotic heart disease of native coronary artery without angina pectoris; J44.9 Chronic obstructive pulmonary disease, unspecified; Z85.46 Personal history of malignant neoplasm of prostate; F17.210 Nicotine dependence, cigarettes, uncomplicated
CPT/HCPCS: 36415; 71045; 76700; 80048; 80076; 81003; 81015; 82024; 82533; 82947; 82962; 83036; 83605; 83735; 83880; 84484; 85025; 85610; 87040; 87086; 87088; 87804; 93005; 93306; 94640; 96365; 96367; 96372; 96375; 99285; J0456; J0834; J1650; J1940

== ENCOUNTER 2018-12-15 11:07 | Inpatient (IN) | payer OTHER, MEDICARE ==
[2018-12-15] MEDS ORDERED: GLUCAGON 1 MG/VIAL IM PRN (11:51)
[2018-12-15] MEDS ORDERED: D50W 25 GM/50 ML SYRINGE IV PRN (11:51)
[2018-12-15] MEDS ORDERED: ACETAMINOPHEN 325 MG TABLET PO PRN (11:59)
[2018-12-15] MEDS ORDERED: LOPERAMIDE HCL 2 MG CAPSULE PO PRN (11:59)
[2018-12-15] MEDS ORDERED: POLYETHYL GLY 3350 17 GM/DOSE PO PRN (11:59)
[2018-12-15] MEDS ORDERED: DIPHENHYDRAMINE 25 MG TAB/CAP PO PRN (11:59)
[2018-12-15] MEDS ORDERED: ONDANSETRON 4 MG/2 ML VIAL IV PRN (12:04)
[2018-12-15 12:29] LABS: Absolute Lymphocytes (CBC) 0.4 K/uL (0.7-4.9); Basophils % 0.6 % (0-1.3); Hematocrit 38.2 % (39.6-49.0); Lymphocytes % 9.1 % (15.3-44.8); MPV 9.3 fL (7.6-11.3); RBC Red Blood Cell Count 4.19 M/uL (4.33-5.43)
[2018-12-15 12:30] VITALS: BMI 26.7
[2018-12-15 12:34] LABS: Protime INR 1.14
[2018-12-15] MEDS ORDERED: FUROSEMIDE 100 MG in D5W 90 ML IV SCH (13:00)
[2018-12-15] MEDS: FUROSEMIDE 100 MG in D5W 90 ML IV SCH ×2 (13:00→23:58)
--- NOTE | 2018-12-15 13:15 | RAD REPORT ---
EXAM DESCRIPTION: Royer Rubio (2 Views)12/15/2018 1:07 pm CLINICAL HISTORY: Cough COMPARISON: October 2018 FINDINGS: The lungs appear clear of acute infiltrate. The heart is markedly enlarged IMPRESSION: No acute abnormalities displayed
[2018-12-15 13:18] LABS: Albumin 3.5 g/dL (3.4-5.0); Bilirubin Direct 0.8 mg/dL (0-0.2); Bilirubin Total 1.3 mg/dL (0.2-1.0); Magnesium 2.3 mg/dL (1.8-2.4); Phosphorus 3.3 mg/dL (2.5-4.9); Potassium 4.7 mmol/L (3.5-5.1); Protein, Total 6.4 g/dL (6.4-8.2)
[2018-12-15 13:22] LABS: Thyroid Stimulating Hormone 12.8 uIU/mL (0.360-3.740)
--- NOTE | 2018-12-15 14:05 | RAD REPORT ---
EXAM DESCRIPTION: USExtrem Venous W Compress Bil12/15/2018 1:53 pm CLINICAL HISTORY: Bilateral leg swelling COMPARISON: none FINDINGS: The common femoral, superficial femoral, popliteal and posterior tibial veins bilaterally are compressible and demonstrate augmentation. Doppler demonstrates good flow. IMPRESSION: No evidence of deep venous thrombosis involving either lower extremity.
[2018-12-15] MEDS: LEVALBUTEROL 1.25 MG/3 ML NEB NEB SCH ×2 (14:15→20:00)
[2018-12-15] MEDS: IPRATROPIUM BROM 0.5MG/2.5ML NEB SCH ×2 (14:15→20:00)
--- NOTE | 2018-12-15 15:37 | RAD REPORT ---
EXAM DESCRIPTION: US - Renal Ultrasound-Complete - 12/15/2018 2:56 pm CLINICAL HISTORY: Acute kidney injury COMPARISON: None. FINDINGS: The right kidney measures 10.2 x 4.9 x 5.5 cm. The left kidney measures 10.0 x 5.4 x 5.1 cm. Renal cortical thickness and echogenicity are normal. Mild fullness of the right renal pelvis is present not believed to be hydronephrosis. No solid mass or other suspicious parenchymal finding. No bladder wall thickening or mass. No intraluminal stone or mass. Ascites is present only partially imaged. Partially imaged liver shows slightly nodular contour. IMPRESSION: No hydronephrosis or suspicious renal mass. No other significant renal findings. Ascites is present only partially imaged. Liver parenchymal disease is suspected but liver is not ful ly assessed.
[2018-12-15] MEDS: INSULIN -REGULAR HUMAN 50 UNIT/0.5 ML ML SQ SCH ×2 (16:47→21:00)
--- NOTE | 2018-12-15 18:12 | CON ---
Date of Consultation: 12/15/2018 Reason For Consultation: Elevated BUN and creatinine, anasarca. History Of Present Illness: This is a pleasant 77-year-old gentleman with significant past medical history of diabetes complicated with neuropathy, no retinopathy, hypertension, hyperlipidemia, congestive heart failure. No NM. Ejection fraction around 20%, as by the patient, hypothyroidism. Patient was in his regular state of health apparently for the last 3 weeks, patient started to have increased swelling in his both leg gradually. Patient gained around 20 pounds over the last 3 weeks, started having decrease in his exertional tolerance with orthopnea 3 pillows. For that reason, patient came to the hospital, found to be over volume, elevated BUN and creatinine. For that reason , we have been consulted. Reviewing the record for the patient back in October, creatinine 1.5, GFR of 43, which has been like that. Patient denied taking any nonsteroidal, no IV contrast. New lab for today is still pending. Past Medical History: 1. Diabetes complicated with neuropathy. No retinopathy. 2. Congestive heart failure, ejection fraction of 19%. 3. Prostate cancer, status post radiation. 4. Chronic kidney disease, baseline creatinine 1.5-1.6. GFR 43. Home Medications: Atorvastatin, Lasix, glimepiride, levothyroxine, lisinopril, metoprolol. Past Surgical History: Hernia repair, appendectomy. Family History: Positive for hypertension, coronary artery disease, kidney disease. Social History: Active smoker. Denied alcohol. Denied drugs abuse. Review of Systems: Head and Neck: No red eye. No ear pain. GI: Feeling bloated, increased abdominal girth. : No polyuria. No dysuria. No hematuria. BUSH REGENERATOR: Not applicable. Respiratory: Has shortness of breath. Cardiovascular: Has orthopnea. Has leg swelling. Endocrine: No polydipsia. Skin: No rash. Neurologic: Has neuropathy. Musculoskeletal: Generalized fatigue. Current Medications In The Hospital: Tylenol, Lasix drip, insulin, loperamide, Zofran. Physical Examination: Vital Signs: When I saw the patient; blood pressure 107/52, pulse of 62. Chest: Crackles bilateral base. Heart: S1, S2. Systolic murmur. Abdomen: Soft, ascites. Extremities: +3 edema. Neurologic: Alert and oriented x3. No focal. Laboratory Data: Doppler for the lower extremity, prominent atherosclerotic change both leg. Echocardiogram, ejection fraction of 19%. Chest x-ray, left upper lobe pneumonia, cardiomegaly without over volume. Assessment And Plan: 1. Chronic kidney disease with acute kidney injury, over volume, and anasarca. I going to agree with Lasix drip for the time being. We will go ahead and send for TSH, protein, creatinine, and we will monitor the patient. We will add low dose of metolazone and we will follow up. 2. Hyponatremia, dilutional. We will continue diuresis. 3. Chronic kidney disease with acute kidney injury, anasarca, as above. Mostly secondary to cardiorenal. 4. Congestive heart failure with exacerbation. We will continue on the Lasix drip. 5. Urinary tract infection. We will start the patient on antibiotic. We will follow up. 6- anasarca multifactorial : Cirrhosis / hypothyroidism /given the history of the porstat CA before local lymphoadenopathy pressure obstruction need to be R/o will sen for the CT Abd and pelvic, willl send for P/cr 7- Ascitis possible cardiorenal congestion liver : will send for the Hepatitis panal will consider diagnostic and therputic Paracentisis ROSEMARY/ULISES Voice ID: [id number] Report ID: [id number] MTDD
[2018-12-15] MEDS: AMOX/K CLAV 500 MG TAB PO SCH (20:55)
[2018-12-16 01:44] LABS: UR MICROALBUMIN 2.3 mg/dL (< 1.9)
[2018-12-16 01:59] LABS: UR PROTEIN < 5 mg/dL (<11.9); Urine Protein/Creatinine Ratio ND ratio (<0.15)
[2018-12-16] MEDS: IPRATROPIUM BROM 0.5MG/2.5ML NEB SCH ×4 (02:00→20:00)
[2018-12-16] MEDS: LEVALBUTEROL 1.25 MG/3 ML NEB NEB SCH ×4 (02:00→20:00)
[2018-12-16 02:25] LABS: Urine Appearance CLEAR; Urine Bilirubin NEGATIVE (NEG); Urine Blood NEGATIVE (NEG); Urine Color YELLOW; Urine Glucose NEGATIVE (NEG); Urine Protein NEGATIVE (NEG); Urine Urobilinogen 0.2 mg/dL (0.2-1.0)
[2018-12-16 03:22] LABS: Urine Bacteria <20 /HPF (NONE SEEN); Urine Culture Reflex Order NOT NEEDED; Urine RBC <5 /HPF (NONE SEEN)
[2018-12-16] MEDS: LEVOTHYROXINE SOD 0.125 MG TAB PO SCH (05:31)
[2018-12-16] MEDS: LEVOTHYROXINE SOD 0.05 MG TABLET PO SCH (05:31)
[2018-12-16 05:50] LABS: Absolute Lymphocytes (CBC) 0.5 K/uL (0.7-4.9); Basophils % 0.8 % (0-1.3); Hematocrit 36.9 % (39.6-49.0); Lymphocytes % 11.2 % (15.3-44.8); MPV 9.5 fL (7.6-11.3); RBC Red Blood Cell Count 4.09 M/uL (4.33-5.43)
[2018-12-16] MEDS ORDERED: HOME MED 1 EA UNK (Levothyroxine Sodium [Levothyroxine Sodium] 150 MCG) PO SCH (06:00)
[2018-12-16 06:01] LABS: Albumin 3.3 g/dL (3.4-5.0); Phosphorus 3.6 mg/dL (2.5-4.9); Potassium 4.5 mmol/L (3.5-5.1); Uric Acid 11.1 mg/dL (3.5-7.2)
[2018-12-16] MEDS ORDERED: LEVOTHYROXINE SOD 0.075 MG TAB PO SCH (06:30)
[2018-12-16] MEDS: INSULIN -REGULAR HUMAN 50 UNIT/0.5 ML ML SQ SCH ×4 (07:30→20:20)
--- NOTE | 2018-12-16 07:46 | EKG ---
Test Date: 2018-12-15 Test Time: 13:38:08 Planning Feeder: ANA MEASUREMENT RESULTS: Intervals: Rate: 84 ID: QRSD: [id number] QT: 438 QTc: 517 [place]: P: ID: QRS: [id number] T: -52 INTERPRETIVE STATEMENTS: Atrial fibrillation with premature ventricular or aberrantly conducted complexes Anterolateral infarct, age undetermined ST abnormality, possible inferior subendocardial injury Abnormal ECG Compared to ECG 11/06/2018 21:37:09 Myocardial infarct finding still present ST (T wave) deviation still present Electronically Signed On 12-16-18 07:45:47 CDT by Chandan Stringer
--- NOTE | 2018-12-16 08:53 | RAD REPORT ---
EXAM DESCRIPTION: CT - Abdomen Pelvis Wo Contrast - 12/16/2018 7:44 am CLINICAL HISTORY: Abdominal pain COMPARISON: None TECHNIQUE: Computed axial tomography of the abdomen and pelvis was obtained. IV and oral contrast we re not requested. All CT scans are performed using dose optimization technique as appropriate and may include automated exposure control or mA/KV adjustment according to patient size. FINDINGS: The evaluation of solid organs, vessels and bowel is limited secondary to the lack of con trast administration. The heart is enlarged. Small to moderate right and small left pleural effusions Small to moderate amount of ascites is present Edema throughout subcutaneous tissues and mesenteric. A renal mass is not seen. No hydronephrosis. Renal arterial calcifications. Small right inguinal hernia. Internal radiation beams cine. Prostatic tissue. The prostate gland is mildly enlarged. Diverticula stem from the colon without diverticulitis. No significant lymphadenopathy IMPRESSION: Small to moderate right pleural effusion. Small to moderate amount of ascites Anasarca
[2018-12-16] MEDS: PANTOPRAZOLE 40MG TABLET PO SCH (08:59)
[2018-12-16] MEDS: ATORVASTATIN 20 MG TAB PO SCH (08:59)
[2018-12-16] MEDS: ENOXAPARIN 30 MG/0.3 ML SQ SCH (08:59)
[2018-12-16] MEDS: ASPIRIN EC 81 MG TAB PO SCH (08:59)
[2018-12-16] MEDS: METOPROLOL XL 25 MG TAB PO SCH (08:59)
[2018-12-16] MEDS ORDERED: HOME MED 1 EA UNK (Omeprazole [Prilosec] 40 MG) PO SCH (09:00)
[2018-12-16] MEDS: AMOX/K CLAV 500 MG TAB PO SCH ×2 (09:00→20:18)
[2018-12-16] MEDS: GLIMEPIRIDE 2 MG TABLET PO SCH (09:00)
[2018-12-16] MEDS: METOLAZONE 2.5 MG TABLET PO SCH (09:00)
[2018-12-16] MEDS ORDERED: HOME MED 1 EA UNK (Glimepiride [Glimepiride] 2 MG) PO SCH (09:00)
[2018-12-16] MEDS: FUROSEMIDE 100 MG in D5W 90 ML IV SCH ×2 (09:01→20:18)
--- NOTE | 2018-12-16 11:06 | P.PN ---
Subjective Date of Service: 12/16/18 Subjective: Improving Pt with Hx of systolic CHF EF 20% , Hx of pericardial effusion, presented for edema and SOB Today feels much better , abdomen soft lost .10 lbs Monitor I/O will switch to lasix IVP tomorrow Cont Abx for 3 more days Physical Examination - Vital Signs Temperature: 97.8 F Blood Pressure: 118/57 Pulse: 93 Respirations: 18 Pulse Ox (%): 96 - Physical Exam General: In no apparent distress, Oriented x3 HEENT: Atraumatic Neck: Supple, JVD not distended Respiratory: Crackles/rales Cardiovascular: Regular rate/rhythm, Normal S1 S2, Edema, Systolic murmur Gastrointestinal: Normal bowel sounds, Soft and benign Musculoskeletal: Swelling - Studies Laboratory Data (last 24 hrs) 12/16/18 05:22: Sodium 143, Potassium 4.5, BUN 61 H, Creatinine 2.20 H, Glucose 96, Uric Acid 11.1 H, Phosphorus 3.6 12/16/18 05:16: WBC 4.6, Hgb 12.4 L, Hct 36.9 L, Plt Count 125 L 12/16/18 05:00: Uric Acid Cancelled 12/15/18 12:04: Sodium 141, Potassium 4.7, BUN 61 H, Creatinine 2.28 H, Glucose 191 H, Phosphorus 3.3, Magnesium 2.3, Total Bilirubin 1.3 H, AST 35, ALT 28, Alkaline Phosphatase 127 H 12/15/18 12:04: PT 13.4 H, INR 1.14, APTT 29.2 12/15/18 12:04: WBC 4.3, Hgb 12.7 L, Hct 38.2 L, Plt Count 130 L Assessment And Plan - Plan DAREN on CKD Cr 1.6 in October DAREN likely due to cardiorenal syndrome will cont lasix drip ane metolazone and switch to lasix IVP tomorrow salt and fluid restriction daily wt I/O Anasarca pt is non proteinuric , his edema is likely cardiac in etiology diuretics as above DM as per primary team Hypothyrodism on synthroid debility Cont PT/OT to cont Abx for total of 5 days
--- NOTE | 2018-12-16 20:04 | PN ---
Subjective: Mr. Matta is doing lot better. He has lost some weight. He understands now. He has to follow a salt-free diet. He eats a lot of salt he says, but he is trying to follow recommendation s now. He still smokes a few cigarettes a day and not able to quit. Physical Examination: Vital Signs: Blood pressure 94/51. Chest: Decreased breath sounds bilaterally. HEART: Regular. Abdomen: No guarding, no rebound, no rigidity. Extremities: Legs have a moderate edema, improved compared to yesterday. Laboratory Examination: Hemoglobin is 12.4, hematocrit 36, BUN 61, creatinine 2.20. Assessment And Plan: Congestive cardiomyopathy. Stop Entresto at this point. It did not really imp rove his condition. Might have gotten him worse. Lasix drip and midazolam off and on per see supervisor . He is not able to tolerate medication because the blood pressure dropped with diuretics. This is because of congestive cardiomyopathy. His prognosis remains overall poor. He refuses to do a defibr illator placement and recommended to do so before by 2 cardiologists. Prognosis is guarded. RVD/MODL Voice ID: [id number] Report ID: [id number]
[2018-12-17] MEDS: IPRATROPIUM BROM 0.5MG/2.5ML NEB SCH ×2 (02:00→08:00)
[2018-12-17] MEDS: LEVALBUTEROL 1.25 MG/3 ML NEB NEB SCH ×2 (02:00→08:00)
[2018-12-17 04:16] VITALS: O2SAT 97
[2018-12-17] MEDS: LEVOTHYROXINE SOD 0.05 MG TABLET PO SCH (05:33)
[2018-12-17] MEDS: FUROSEMIDE 100 MG in D5W 90 ML IV SCH (05:33)
[2018-12-17] MEDS: LEVOTHYROXINE SOD 0.125 MG TAB PO SCH (05:33)
--- NOTE | 2018-12-17 07:02 | EKG ---
Test Date: 2018-12-16 Test Time: 20:07:04 Quill Collector: RT-O MEASUREMENT RESULTS: Intervals: Rate: 88 TN: QRSD: 132 QT: 394 QTc: 476 [place]don: P: TN: QRS: -29 T: 157 INTERPRETIVE STATEMENTS: Atrial fibrillation with premature ventricular or aberrantly conducted complexes Left ventricular hypertrophy with QRS widening T wave abnormality, consider lateral ischemia or digitalis effect Anterior infarct Abnormal ECG Compared to ECG 12/15/2018 13:38:08 no significant change from previous ECG Electronically Signed On 12-17-18 07:02:24 CDT by Chandan Stringer
[2018-12-17 07:11] LABS: Albumin 3.4 g/dL (3.4-5.0); Phosphorus 3.6 mg/dL (2.5-4.9); Potassium 3.9 mmol/L (3.5-5.1)
[2018-12-17] MEDS: INSULIN -REGULAR HUMAN 50 UNIT/0.5 ML ML SQ SCH ×2 (07:30→11:30)
[2018-12-17] MEDS: METOLAZONE 2.5 MG TABLET PO SCH (08:41)
[2018-12-17] MEDS: METOPROLOL XL 25 MG TAB PO SCH (08:42)
[2018-12-17] MEDS: ASPIRIN EC 81 MG TAB PO SCH (08:42)
[2018-12-17] MEDS: ENOXAPARIN 30 MG/0.3 ML SQ SCH (08:42)
[2018-12-17] MEDS: ATORVASTATIN 20 MG TAB PO SCH (08:42)
[2018-12-17] MEDS: GLIMEPIRIDE 2 MG TABLET PO SCH (08:43)
[2018-12-17] MEDS: PANTOPRAZOLE 40MG TABLET PO SCH (08:43)
[2018-12-17] MEDS: AMOX/K CLAV 500 MG TAB PO SCH (08:50)
[2018-12-17] MEDS ORDERED: POTASSIUM CL SA 10 MEQ TAB PO ONE (09:00)
--- NOTE | 2018-12-17 09:56 | P.DS ---
Admission Date: 12/16/18 Discharge Date: 12/17/18 Disposition: ROUTINE DISCHARGE Discharge Condition: FAIR Hospital Course: MR. ENGLISH IS DOING WELL. HE IS DYSPNEIC WITH MINIMAL EXERSION, HIS EDMEA HAS IMPROVED. WE TALKED ABOUT DEFIBRILALTOR AGAIN. HE DOES NOT WANT IT. HE SAYS HE HAS HAD GOOD LIFE AND HE DOES NOT WANT TO PROLONG LIFE IN [facility]. HE WILL WATCH DIET. HE HAS BEEN GIVEN INSTRUCTIONS ON SALT RESTRICTION. HIS CREATITINE HAS IMPROVED. HE WILL BE ON LASIX, ZAROXOLYN, POTASSIUM AND WILL STOP ENTRESTO HE DID NOT DO WELL WITH IT. AFTER ENTRESTO OR HAVING SALTY FOOD HE GOT WORSE. HIS BP IS LOW ENOUGH NOT TOLERATE BETA KEE OR LOSARTAN. PROGNOSIS IS POOR. I TALKED TO THE FAMILY- AN SHE IS AWARE OF HIS POOR CONDITION. HE ALSO HAS TALKED TO HIS DAUGHTER AND THEY ARE AWARE. HE WANTS DNR STATUS. Vital Signs/Physical Exam: Temp Pulse Resp BP Pulse Ox 97.9 F 86 18 109/62 97 12/17/18 04:00 12/17/18 08:42 12/17/18 04:00 12/17/18 08:42 12/17/18 04:00 General: Alert, Mild distress HEENT: Atraumatic, PERRLA, EOMI Neck: Supple, JVD not distended Respiratory: Clear to auscultation bilaterally, Normal air movement Cardiovascular: Normal S1 S2, Edema Gastrointestinal: Normal bowel sounds, No tenderness Musculoskeletal: No tenderness Integumentary: No rashes Neurological: Normal speech, Normal tone, Normal affect Lymphatics: No axilla or inguinal lymphadenopathy Laboratory Data at Discharge: WBC 4.6 K/uL (4.3-10.9) 12/16/18 05:16 Hgb 12.4 g/dL (13.6-17.9) L 12/16/18 05:16 Hct 36.9 % (39.6-49.0) L 12/16/18 05:16 Plt Count 125 K/uL (152-406) L 12/16/18 05:16 PT 13.4 SECONDS (9.5-12.5) H 12/15/18 12:04 INR 1.14 12/15/18 12:04 APTT 29.2 SECONDS (24.3-36.9) 12/15/18 12:04 Sodium 142 mmol/L (136-145) 12/17/18 05:45 Potassium 3.9 mmol/L (3.5-5.1) 12/17/18 05:45 BUN 59 mg/dL (7-18) H 12/17/18 05:45 Creatinine 2.04 mg/dL (0.55-1.3) H 12/17/18 05:45 Glucose 47 mg/dL (74-106) L* 12/17/18 05:45 Uric Acid 11.1 mg/dL (3.5-7.2) H 12/16/18 05:22 Phosphorus 3.6 mg/dL (2.5-4.9) 12/17/18 05:45 Magnesium 2.1 mg/dL (1.8-2.4) 12/16/18 18:49 Total Bilirubin 1.3 mg/dL (0.2-1.0) H 12/15/18 12:04 AST 35 U/L (15-37) 12/15/18 12:04 ALT 28 U/L (12-78) 12/15/18 12:04 Alkaline Phosphatase 127 U/L (45-117) H 12/15/18 12:04 Home Medications: Aspirin [Adult Aspirin Regimen] 81 mg PO DAILY 12/15/18 Atorvastatin Calcium 20 mg PO DAILY 12/15/18 Glimepiride 2 mg PO DAILY 12/15/18 Levothyroxine Sodium 150 mcg PO [id number] 12/15/18 Metoprolol Succinate [Toprol Xl*] 25 mg PO DAILY 12/15/18 Omeprazole [Prilosec] 40 mg PO DAILY 12/15/18 Acetaminophen [Tylenol*] 650 mg PO Q6H PRN tab 12/17/18 Furosemide 20 mg PO DAILY #90 tablet 12/17/18 Insulin -Regular Human [Novolin -R*] See Protocol SQ ACHS ml 12/17/18 Potassium Chloride [Klor-Con M20] 20 meq PO BID #60 tab.er.prt 12/17/18 metOLazone [Zaroxolyn*] 2.5 mg PO DAILY #30 tab 12/17/18 New Medications: Furosemide 20 mg PO DAILY #90 tablet metOLazone [Zaroxolyn*] 2.5 mg PO DAILY #30 tab Potassium Chloride [Klor-Con M20] 20 meq PO BID #60 tab.er.prt
[2018-12-17 13:04] VITALS: BP 100/67; TEMP 97
--- NOTE | 2018-12-17 16:47 | CON ---
History Of Present Illness: Mr. Matta is in the hospital for congestive heart failure. He is know n to have a congestive cardiomyopathy. He refuses to consider doing any major interventions and with out formally doing so, has made himself do not resuscitate. He turns down all measures that might be helpful with his condition. He went into AFib briefly. I think he is now back in sinus rhythm, hea rt rate 86, AFib is not unexpected. The patient as an outpatient has been on Entresto, omeprazole, a spirin, metoprolol, levothyroxine, atorvastatin, and glimepiride. Physical Examination: Vital Signs: 5 feet 10 inches, 172 pounds. HEENT: Normal. Abdomen: Protuberant. It looks like he might have ascites, but I cannot really prove he has shiftin g dullness. Extremities: He has 2+ pedal edema bilaterally. These are all greatly improved since he has been he re. Assessment And Plan: His I's and O's indicate he has lost at least 14 pounds if not more like 20, al l from diuresis. I think the patient is ready for discharge at this point and I agree with Dr. Clemens 's discharge plan. Will be on furosemide, metolazone, potassium chloride. I think he should probabl y continue the Entresto and metoprolol as well and levothyroxine. SH/MODL Voice ID: [id number] Report ID: [id number]
[2018-12-19 08:47] LABS: Vitamin D 1,25-Dihydroxy Total 15 pg/mL (18-72); Vitamin D,1,25-OH2, D2 <8 pg/mL
[2018-12-20 03:06] LABS: HBsAG Nonreactive (Nonreactive)
[2018-12-20 16:01] LABS: Hepatitis C Virus RNA (PCR)log <1.18 log IU/mL
== END 2018-12-17 12:59 | disposition home or self-care (01) | DRG 291 ==
LOC: 2ND 11:32 → OBSVTOIN 12-16 12:04
PROVIDERS: ADMIT Internal Medicine; ATTEND Internal Medicine
DX: I13.0 Hypertensive heart and chronic kidney disease with heart failure and stage 1 through stage 4 chronic kidney disease, or unspecified chronic kidney disease (principal); I50.23 Acute on chronic systolic (congestive) heart failure; E87.1 Hypo-osmolality and hyponatremia; I42.0 Dilated cardiomyopathy; E11.22 Type 2 diabetes mellitus with diabetic chronic kidney disease; N18.9 Chronic kidney disease, unspecified; E03.9 Hypothyroidism, unspecified; Z85.46 Personal history of malignant neoplasm of prostate; F17.210 Nicotine dependence, cigarettes, uncomplicated; Z66 Do not resuscitate
CPT/HCPCS: 36415; 71046; 74176; 76770; 80048; 80069; 80076; 81001; 82043; 82570; 82607; 82652; 82947; 83036; 83735; 83880; 83930; 83935; 83970; 84100; 84132; 84156; 84300; 84439; 84443; 84550; 85025; 85379; 85610; 85730; 86317; 86704; 86706; 87040; 87070; 87205; 87340; 87522; 93005; 93970; 94640; G0378; G0379; J1650

== ENCOUNTER 2019-07-10 05:57 | Emergency (ER) | payer OTHER, MEDICARE ==
[2019-07-10 07:25] LABS: Urine Blood NEGATIVE (NEG); Urine Glucose NEGATIVE (NEG); Urine Protein 1+ (NEG)
[2019-07-10 08:37] VITALS: BP 126/66; O2SAT 100
--- NOTE | 2019-07-17 12:01 | ER ---
Nurse's Notes [facility] Name: Vimal Matta Age: 78 yrs Sex: Male : 1940 Arrival Date: 07/10/2019 Time: 06:04 Bed 6 Private MD: Diagnosis: Constipation;Unspecified abdominal pain Presentation: 07/09 06:19 Chief complaint: Patient states: Hernia pain related to no BM x6-7 days; States some lp1 nausea, shortness of breath; No relief with OTC medications for constipation. Coronavirus screen: Proceed with normal triage. Ebola Screen: No symptoms or risks identified at this time. Risk Assessment: Do you want to hurt yourself or someone else? Patient reports no desire to harm self or others. Onset of symptoms was July 10, 2019. 06:19 Method Of Arrival: Ambulatory lp1 06:19 Acuity: DIANELYS 3 lp1 06:19 Initial Sepsis Screen: Does the patient meet any 2 criteria? No. Patient's initial rr5 sepsis screen is negative. Does the patient have a suspected source of infection? Yes: Acute abdominal pain. Triage Assessment: 06:35 General: Appears in no apparent distress. uncomfortable, Behavior is calm. rr5 06:35 Pain: Complains of pain in abdomen Pain currently is 8 out of 10 on a pain scale. rr5 Quality of pain is described as aching, Pain began gradually, Is intermittent. Neuro: Level of Consciousness is awake, alert, obeys commands, Oriented to person, place, time, situation, Appropriate for age. Cardiovascular: Capillary refill < 3 seconds Patient's skin is warm and dry. Respiratory: Airway is patent Respiratory effort is even, unlabored, Respiratory pattern is regular, symmetrical. GI: Abdomen is distended, Abdomen is tender to palpation X 4 quads. Reports lower abdominal pain, upper abdominal pain, constipation, hernia. : No signs and/or symptoms were reported regarding the genitourinary system. Derm: Skin is intact, is healthy with good turgor, Skin temperature is warm. Musculoskeletal: Circulation, motion, and sensation intact. Capillary refill < 3 seconds. 06:35 EENT: No signs and/or symptoms were reported regarding the EENT system. rr5 Historical: - Allergies: 06:22 No Known Allergies; lp1 - Home Meds: 06:44 atorvastatin Oral [Active]; Furosemide Oral [Active]; Glimepiride Oral [Active]; rr5 levothyroxine oral [Active]; Klor-Con 10 Oral [Active]; Metoprolol Tartrate Oral [Active]; Acetaminophen-Codeine Oral [Active]; - PMHx: 06:22 CHF; COPD; Diabetes - NIDDM; High Cholesterol; lp1 - PSHx: 06:22 Hernia repair; lp1 - Immunization history:: Adult Immunizations up to date. - Social history:: Smoking status: Patient reports the use of cigarette tobacco products, smokes one-half pack cigarettes per day. Screenin:22 Abuse screen: Denies threats or abuse. Denies injuries from another. Nutritional lp1 screening: No deficits noted. Tuberculosis screening: No symptoms or risk factors identified. Fall Risk None identified. Assessment: 07:20 General: Appears in no apparent distress. comfortable, Behavior is calm, cooperative. iw Pain: Complains of pain in right inguinal area and abdomen. Neuro: Level of Consciousness is awake, alert, obeys commands, Oriented to person, place, time, situation, Moves all extremities. Full function. Cardiovascular: Patient's skin is warm and dry. Respiratory: Respiratory effort is even, unlabored, Respiratory pattern is regular, symmetrical. GI: Bowel sounds present X 4 quads. Reports constipation. GI: Abdomen is non-distended. GI: Abd is soft X 4 quads. Derm: Skin is intact, is healthy with good turgor. Musculoskeletal: Range of motion: intact in all extremities. 07:25 Reassessment: pt given warm blanket, pt then states "what are we waiting on", I iw explained to patient that he had labs sent and we are waiting on CT , pt states "I just want a gycerin, they always do fifteen different tests and all I need is a suppository". Pt states he had a recent CT and labs drawn and only wants a prescription, notified JETT Tapia. 07:30 Reassessment: JETT Tapia at bedside to speak with patient, pt requesting us to cancel iw labs and CT, lab notified. Vital Signs: 06:19 BP 126 / 66; Pulse 62; Resp 18; Pulse Ox 100% on R/A; Weight 74.84 kg (R); Height 5 ft. lp1 10 in. (177.80 cm); Pain 8/10; 06:19 Body Mass Index 23.67 (74.84 kg, 177.80 cm) lp1 ED Course: 06:04 Patient arrived in ED. bp1 06:07 Willie Smith NP is PHCP. pm1 06:07 Dong Bang DO is Attending Physician. pm1 06:07 Vimal Gill, SONA is Primary Nurse. rr5 06:20 Triage completed. lp1 06:20 Arm band placed on. lp1 06:20 Patient has correct armband on for positive identification. Bed in low position. Call rr5 light in reach. Pulse ox on. NIBP on. 06:40 Inserted saline lock: 20 gauge in right forearm, using aseptic technique. Blood rr5 collected. 07:09 Urine collected: clean catch specimen, clear. rr5 07:48 No provider procedures requiring assistance completed. IV discontinued, intact, iw bleeding controlled, No redness/swelling at site. Pressure dressing applied. 07:49 Primary Nurse role handed off by Vimal Gill RN iw 07:49 Janelle Mayorga RN is Primary Nurse. iw Administered Medications: No medications were administered Outcome: 07:32 Discharge ordered by MD. pm1 07:48 Discharged to home ambulatory. iw 07:48 Condition: unchanged 07:48 Discharge instructions given to patient, Instructed on discharge instructions, follow up and referral plans. medication usage, Demonstrated understanding of instructions, follow-up care, medications, Prescriptions given X 1. 07:49 Patient left the ED. iw Signatures: Janelle Mayorga RN RN iw Pat Jacob RN RN lp1 Willie Smith NP [employer]ICE pm1 Vimal Gill RN RN rr5 Rhina Dey bp1 Corrections: (The following items were deleted from the chart) 08:03 07:25 Reassessment: pt given warm blanket, pt then states "what are we waiting on", I iw explained to patient that he had labs sent and we are waiting on CT , pt states he had a recent CT and labs drawn and only wants a prescription for his constipation, notified JETT Tapia iw
--- NOTE | 2019-07-17 12:01 | EDPHYS ---
Physician Documentation [facility] Name: Vimal Matta Age: 78 yrs Sex: Male : 1940 Arrival Date: 07/10/2019 Time: 06:04 Bed 6 Private MD: ED Physician Dong Bang HPI: 07/09 06:34 This 78 yrs old Male presents to ER via Ambulatory with complaints of Hernia pm1 Pain, Abdominal Swelling, Constipation. 06:34 The patient presents with abdominal pain in right groin from hernia for the past 8 pm1 months. Constipation for the past 6-7 days. 06:34 Onset: The symptoms/episode began/occurred 8 month(s) ago, right groin hernia pain. pm1 Constipation for the past 6-7 days. The symptoms do not radiate. Associated signs and symptoms: Pertinent positives: constipation, nausea, vomited 3 days ago. PO consumption without difficulty since then, Pertinent negatives: chest pain, diarrhea, dysuria, fever, shortness of breath. The symptoms are described as achy. Modifying factors: The symptoms are alleviated by nothing, the symptoms are aggravated by nothing. Patient presents to the ER with complaint of constipation and abdominal pain. Patient has had right groin pain for the past 8 months due to a hernia. Has been evaluated by Dr. Waldron and was supposed to have hernia repair 6 weeks ago but was delayed. Patient reports constipation for the past 6-7 days. For the past two days has been taking over the counter laxatives without improvement. Historical: - Allergies: 06:22 No Known Allergies; lp1 - Home Meds: 06:44 atorvastatin Oral [Active]; Furosemide Oral [Active]; Glimepiride Oral [Active]; rr5 levothyroxine oral [Active]; Klor-Con 10 Oral [Active]; Metoprolol Tartrate Oral [Active]; Acetaminophen-Codeine Oral [Active]; - PMHx: 06:22 CHF; COPD; Diabetes - NIDDM; High Cholesterol; lp1 - PSHx: 06:22 Hernia repair; lp1 - Immunization history:: Adult Immunizations up to date. - Social history:: Smoking status: Patient reports the use of cigarette tobacco products, smokes one-half pack cigarettes per day. ROS: 06:36 Constitutional: Negative for fever, chills, and weight loss, Neck: Negative for injury, pm1 pain, and swelling, Cardiovascular: Negative for chest pain, palpitations, and edema. 06:36 Back: Negative for injury and pain, : Negative for injury, bleeding, discharge, and swelling, MS/Extremity: Negative for injury and deformity, Skin: Negative for injury, rash, and discoloration, Neuro: Negative for headache, weakness, numbness, tingling, and seizure. 06:36 Respiratory: Positive for shortness of breath, Negative for cough, wheezing. 06:36 Abdomen/GI: Positive for abdominal pain, constipation, nausea and vomiting 3 days ago, Negative for diarrhea. Exam: 06:36 Constitutional: This is a well developed, well nourished patient who is awake, alert, pm1 and in no acute distress. Head/Face: Normocephalic, atraumatic. Chest/axilla: Normal chest wall appearance and motion. Nontender with no deformity. No lesions are appreciated. 06:36 Back: No spinal tenderness. No costovertebral tenderness. Full range of motion. Skin: Warm, dry with normal turgor. Normal color with no rashes, no lesions, and no evidence of cellulitis. MS/ Extremity: Pulses equal, no cyanosis. Neurovascular intact. Full, normal range of motion. 06:36 Cardiovascular: Rate: normal, Rhythm: regular, Pulses: no pulse deficits are appreciated, Edema: is not appreciated. 06:36 Respiratory: Exam negative for acute changes, respiratory distress, shortness of breath. 06:36 Abdomen/GI: Inspection: abdomen appears normal, Palpation: abdomen is soft and non-tender, in all quadrants, Hernia: noted in the right inguinal area, incarceration, is not appreciated, tenderness, that is mild, Easily reduced. 06:36 Neuro: Exam negative for acute changes, Orientation: is normal, Mentation: is normal, Motor: is normal, Sensation: is normal. Vital Signs: 06:19 BP 126 / 66; Pulse 62; Resp 18; Pulse Ox 100% on R/A; Weight 74.84 kg (R); Height 5 ft. lp1 10 in. (177.80 cm); Pain 8/10; 06:19 Body Mass Index 23.67 (74.84 kg, 177.80 cm) lp1 MDM: 06:07 Patient medically screened. pm1 07:13 Data reviewed: vital signs. pm1 07:15 Refusal of service: The patient/guardian displays adequate decision making capability pm1 and despite a detailed discussion of alternatives, benefits, risks, and consequences refuses: CT Scan, all lab tests, Patient wants labs and CT canceled because he just had labs and a CT performed last week. I informed him of the plan of care, labs and a CT scan for evaluation of his abdominal pain and constipation at the end of my examination and he was agreeable to the plan. Now, the patient does not want the labs or CT. He just wants a glycerin suppository but does not want to have it administered here. He would like to take it home and self administer. Informed the patient we cannot dispense medications to be taken at home, but I would be happy to provide him a prescription for a laxative. Informed him that glycerin suppositories are available OTC. Therefore I will provide him with a prescription for a stronger laxative so he may use it if the glycerin suppository is not effective. 07/09 06:25 Order name: IV Saline Lock; Complete Time: 06:42 pm1 07/09 06:25 Order name: Labs collected and sent; Complete Time: 06:42 pm1 07/09 06:53 Order name: Urine Dipstick-Ancillary (obtain specimen); Complete Time: 07:09 pm1 07/09 07:16 Order name: Urine Dipstick-Ancillary; Complete Time: 07:34 EDMS Administered Medications: No medications were administered Disposition: 07/10/19 07:32 Discharged to Home. Impression: Constipation, Unspecified abdominal pain. - Condition is Stable. - Discharge Instructions: Abdominal Pain, Adult, Constipation, Adult. - Prescriptions for Lactulose 10 gram/15 mL Oral Solution - take 30 milliliter by ORAL route once daily; 300 milliliter. - Medication Reconciliation Form, Thank You Letter, Antibiotic Education, Prescription Opioid Use form. - Follow up: Emergency Department; When: As needed; Reason: Worsening of condition. Follow up: Private Physician; When: Upon discharge from the Emergency Department; Reason: Recheck today's complaints, Continuance of care, Re-evaluation by your physician. - Problem is new. - Symptoms are unchanged. Signatures: [facility] Janelle Mayorga RN RN Pat Jacob RN RN lp1 Willie Smith NP [employer] pm1 Vimal Gill, RN RN rr5 Corrections: (The following items were deleted from the chart) 06:48 06:34 The patient presents with abdominal pain in right groin from hernia pm1 pm1 07:18 07:12 Basic Metabolic Panel ordered. [facility] 07:18 07:12 Liver (Hepatic) Function ordered. [facility] 07:18 07:12 Lipase ordered. [facility] 07:20 07:13 CBC with Automated Diff ordered. [facility] 07:49 07:32 07/10/2019 07:32 Discharged to Home. Impression: Constipation; Unspecified iw abdominal pain. Condition is Stable. Forms are Medication Reconciliation Form, Thank You Letter, Antibiotic Education, Prescription Opioid Use. Follow up: Emergency Department; When: As needed; Reason: Worsening of condition. Follow up: Private Physician; When: Upon discharge from the Emergency Department; Reason: Recheck today's complaints, Continuance of care, Re-evaluation by your physician. Problem is new. Symptoms are unchanged. pm1
== END 2019-07-10 07:49 | disposition home or self-care (01) ==
LOC: ER 05:57
DX: K59.00 Constipation, unspecified (principal); E11.9 Type 2 diabetes mellitus without complications; E78.00 Pure hypercholesterolemia, unspecified; J44.9 Chronic obstructive pulmonary disease, unspecified; I50.9 Heart failure, unspecified; F17.210 Nicotine dependence, cigarettes, uncomplicated
CPT/HCPCS: 81003; 99283

== ENCOUNTER 2019-07-13 06:50 | Day surgery (SDC) | payer OTHER, MEDICARE ==
[2019-07-13] MEDS ORDERED: LIDOCAINE 4% TOP SOLUTION ONE (07:17)
[2019-07-13] MEDS ORDERED: Phenylephrine HCl 10 MG/ML 1 ML VIAL ONE (07:17)
[2019-07-13] MEDS ORDERED: NA CHLORIDE 0.9% 1,000 ML ONE (07:34)
[2019-07-13] MEDS ORDERED: LIDOCAINE VISCOUS 2% SOLN 15 ML UDC ONE (07:42)
[2019-07-13] MEDS ORDERED: LIDOCAINE 1% MPF 30 ML VIAL ONE (07:42)
[2019-07-13] MEDS ORDERED: D50W 25 GM/50 ML SYRINGE/VIAL IV ONE (07:56)
[2019-07-13 07:58] VITALS: TEMP 97.6; O2SAT 100
--- NOTE | 2019-07-13 09:02 | RAD REPORT ---
EXAM DESCRIPTION: RAD - FLUORO-GUIDE FOR BRONCH UPT1HR - 07/13/2019 8:54 am CLINICAL HISTORY: Atelectasis FINDINGS: Fluoroscopy time 2.6 minutes. Thirteen fluoroscopic spot images obtained. Right lung bronchoscopy performed by Dr. Mayberry
[2019-07-13 09:39] VITALS: BP 123/63
--- NOTE | 2019-07-13 09:47 | RAD REPORT ---
EXAM DESCRIPTION: RAD - Chest Single View - 07/13/2019 9:40 am CLINICAL HISTORY: Bronchoscopy FINDINGS: No pneumothorax status post right bronchoscopy
--- NOTE | 2019-07-18 08:48 | P.OP ---
Date of Service: 07/13/19 (Bronchoscopy with endobronchial biopsy and a BAL) Findings and Operative Technique Patient is 78 years of age evaluated by me for right mid lobe atelectasis has a reason for bronchoscopy narrative report after obtaining informed consent from the patient he was premedicated by anesthesia. Findings normal upper respiratory tract normal trachea normal laya normal right and left-sided bronchial anatomy no endobronchial lesions visible the least mild inflammation in the right middle lobe bronchus multiple endobronchial and transbronchial biopsies were obtained no obstructive lesions visible patient tolerated the procedure very well postoperative chest x-ray did not show any evidence of pneumothorax and with discharged to follow up in my office
== END 2019-07-13 10:17 | disposition home or self-care (01) ==
LOC: OR 06:50
PROVIDERS: ATTEND Internal Medicine Sleep Medicine
PROC: 0BDD8ZX Extraction of Right Middle Lung Lobe, Via Natural or Artificial Opening Endoscopic, Diagnostic (ICD-10-PCS; 2019-07-13)
PROC: 0B9D8ZX Drainage of Right Middle Lung Lobe, Via Natural or Artificial Opening Endoscopic, Diagnostic (ICD-10-PCS; 2019-07-13)
PROC: 0BB58ZX Excision of Right Middle Lobe Bronchus, Via Natural or Artificial Opening Endoscopic, Diagnostic (ICD-10-PCS; principal; 2019-07-13 08:00)
DX: J98.11 Atelectasis (principal); Z11.59 Encounter for screening for other viral diseases; E11.9 Type 2 diabetes mellitus without complications; E78.5 Hyperlipidemia, unspecified; I25.10 Atherosclerotic heart disease of native coronary artery without angina pectoris; Z79.82 Long term (current) use of aspirin; F17.210 Nicotine dependence, cigarettes, uncomplicated; J44.9 Chronic obstructive pulmonary disease, unspecified; K21.9 Gastro-esophageal reflux disease without esophagitis; I25.2 Old myocardial infarction; E07.9 Disorder of thyroid, unspecified; Z88.8 Allergy status to other drugs, medicaments and biological substances
CPT/HCPCS: 31625; 31628; 31624; 88108; 82947; 88305 ×2; 71045; 76000; J2370; J7030

== ENCOUNTER 2019-08-02 08:25 | Emergency (ER) | payer OTHER, MEDICARE ==
[2019-08-02 08:53] LABS: Absolute Lymphocytes (CBC) 0.1 K/uL (0.7-4.9); Basophils % 0.1 % (0-1.3); Hematocrit 40.4 % (39.6-49.0); Lymphocytes % 1.4 % (15.3-44.8); RBC Red Blood Cell Count 4.65 M/uL (4.33-5.43)
[2019-08-02 08:56] LABS: Protime INR 1.34
[2019-08-02] MEDS ORDERED: D50W 25 GM/50 ML SYRINGE/VIAL IV ONE (09:14)
[2019-08-02 09:31] LABS: Albumin 3.4 g/dL (3.4-5.0); Bilirubin Direct 1.7 mg/dL (0-0.2); Bilirubin Total 2.4 mg/dL (0.2-1.0); Magnesium 2.9 mg/dL (1.8-2.4); Potassium 4.5 mmol/L (3.5-5.1); Protein, Total 6.5 g/dL (6.4-8.2); Troponin (Emerg Dept Use Only) 0.07 ng/mL (0.0-0.045)
[2019-08-02 09:37] LABS: Blood Morphology Comment NOTED (NOT SEEN); Platelet Estimate ADEQ; Urine White Blood Cell Casts OK
[2019-08-02 09:38] LABS: Anisocytosis 1+; Burr Cells FEW
--- NOTE | 2019-08-02 09:52 | RAD REPORT ---
EXAM DESCRIPTION: CT - [id number] - 08/02/2019 9:28 am CLINICAL HISTORY: Trauma, head and neck injury. fall COMPARISON: No comparisons TECHNIQUE: Axial 5 mm thick images of the head were obtained. Axial 2 mm thick images of the cervical spine were obtained with sagittal and coronal reconstruction images generated and reviewed. All CT scans are performed using dose optimization technique as appropriate and may include automated exposure control or mA/KV adjustment according to patient size. FINDINGS: CT HEAD WITHOUT CONTRAST: No acute hemorrhage, hydrocephalus or extra-axial collection is identified.Mild generalized brain atr ophy is present with moderate periventricular and deep white matter chronic microvascular ischemic ch anges.No areas of brain edema or midline shift. The paranasal sinuses and mastoids are clear.The calvarium is intact. CT CERVICAL SPINE WITHOUT CONTRAST: No fracture or subluxation.Multilevel degenerative change involves the cervical spine.No prevertebral soft tissues swelling is identified. Carotid atherosclerosis. Right pleural effusion noted. IMPRESSION: No acute intracranial or cervical spine findings.
--- NOTE | 2019-08-02 09:57 | RAD REPORT ---
EXAM DESCRIPTION: RAD - Chest Single View - 08/02/2019 9:47 am CLINICAL HISTORY: fall Chest pain. COMPARISON: Chest Single View dated 07/13/2019; Chest Pa And Lat (2 Views) dated 07/06/2019; Chest Pa And Lat (2 Views) dated 06/30/2019; Chest Pa And Lat (2 Views) dated 12/15/2018 FINDINGS: Portable technique limits examination quality. Moderate right pleural effusion is noted. Mild interstitial pulmonary edema suspected. The heart is s ignificantly enlarged. No displaced fractures.
--- NOTE | 2019-08-02 10:02 | RAD REPORT ---
EXAM DESCRIPTION: RAD - Pelvis - 08/02/2019 9:47 am CLINICAL HISTORY: fall Fall, pain COMPARISON: No comparisons FINDINGS: Mild osteoarthritis involves both hips. No acute fracture or dislocation seen. No radiogra phic evidence of AVN. Moderate atherosclerosis.
--- NOTE | 2019-08-02 10:04 | RAD REPORT ---
EXAM DESCRIPTION: RAD - Hip Left 2 View - 08/02/2019 9:47 am CLINICAL HISTORY: fall;Pain COMPARISON: No comparisons FINDINGS: Mild osteoarthritis affects the left hip. No acute fracture, dislocation or AVN. Moderate atherosclerosis.
--- NOTE | 2019-08-02 10:05 | RAD REPORT ---
EXAM DESCRIPTION: RAD - Hip Right 2 View - 08/02/2019 9:47 am CLINICAL HISTORY: fall;Pain Fall, pain COMPARISON: No comparisons FINDINGS: Mild osteoarthritis affects the right hip. No fracture, dislocation or AVN.
[2019-08-02] MEDS ORDERED: ASPIRIN 81 MG CHEWABLE TABLET ONE (10:09)
[2019-08-02 10:27] LABS: Urine Blood NEGATIVE (NEG); Urine Glucose NEGATIVE (NEG); Urine Protein NEGATIVE (NEG); Urine Specific Gravity 1.015 (1.005-1.030)
--- NOTE | 2019-08-02 10:30 | ER ---
Nurse's Notes [facility] Name: Vimal Matta Age: 78 yrs Sex: Male : 1940 Arrival Date: 08/02/2019 Time: 08:30 Bed 7 Private MD: Diagnosis: Hypoglycemia, unspecified;Other and unspecified fall on same level;Elevated Troponin Presentation: 08/01 08:35 Chief complaint: Patient states: Family member called 911 for unwitnessed fall and AMS. EMS reports upon arrival patient's BGL was 52 which is reportedly very low for him. After administering 250 mL of D10 IV, patient is A\T\O x3 and denies any pain. Pt was found on floor next to bed. Coronavirus screen: Proceed with normal triage. Patient denies a cough. Patient denies shortness of breath or difficulty breathing. Patient denies measured and/or subjective temperature greater than 100.4F prior to today's visit. Patient denies travel on a cruise ship or to a country the [facility] currently lists as an affected area. Patient denies contact with known and/or suspected case of COVID-19. Ebola Screen: Patient denies exposure to infectious person. Patient denies travel to an Ebola-affected area in the 21 days before illness onset. Initial Sepsis Screen: Does the patient meet any 2 criteria? No. Patient's initial sepsis screen is negative. Does the patient have a suspected source of infection? No. Patient's initial sepsis screen is negative. Risk Assessment: Do you want to hurt yourself or someone else? Patient reports no desire to harm self or others. Onset of symptoms was August 02, 2019. 08:35 Method Of Arrival: EMS: [facility] 08:35 Acuity: DIANELYS 3 Historical: - Allergies: 08:38 No Known Allergies; ss - PMHx: 08:38 CHF; COPD; Diabetes - NIDDM; High Cholesterol; ss - PSHx: 08:38 Hernia repair; ss - Immunization history:: Adult Immunizations up to date. - Social history:: Smoking status: Patient denies any tobacco usage or history of. Screenin:45 Abuse screen: Denies threats or abuse. Denies injuries from another. Nutritional jl7 screening: No deficits noted. Tuberculosis screening: No symptoms or risk factors identified. Fall Risk IV access (20 points). Total Coronado Fall Scale indicates No Risk (0-24 pts). 09:30 The patient has not been NPO before screening. The patient is currently on the jl7 following diet: Regular The patient is alert, able to follow commands. The patient does not exhibit slurred or garbled speech The patient is not exhibiting difficulty speaking. The patient does not exhibit difficulty understanding words. The patient is able to swallow own secretions with no drooling or need for suction. Patient tolerated one teaspoon of water. No drooling, immediate coughing, gurgling, or clearing of the throat was noted. The patient tolerated 90mL of water. No drooling, immediate coughing, gurgling, or clearing of the throat was noted. The patient passed the bedside swallow screening. Oral medications may be given as ordered. Contact Physician for further diet orders. Provider notified of bedside swallow screening results: Marino STANLEY. Assessment: 08:45 General: Appears in no apparent distress. uncomfortable, Behavior is calm, cooperative, jl7 drowsy. Pain: Denies pain. Neuro: Level of Consciousness is awake, alert, obeys commands, Oriented to person, place, time, situation. Cardiovascular: Patient's skin is warm and dry. Respiratory: Airway is patent Respiratory effort is even, unlabored, Respiratory pattern is regular, symmetrical. Derm: Skin is pink, warm \T\ dry. 09:45 Reassessment: Diet tray delivered to pt. aa5 10:03 Reassessment: Patient appears in no apparent distress at this time. No changes from jl7 previously documented assessment. Patient and/or family updated on plan of care and expected duration. Pain level reassessed. Patient is alert, oriented x 3, equal unlabored respirations, skin warm/dry/pink. 13:22 Reassessment: Gave report to Christine (Nurse with [facility] hospice care) , Hospice was not aa5 revoked due to non-hospice related ER visit as reported by Christine so pt is ok to go home under [facility] Hospice care. Pt's was notified. . Vital Signs: 08:35 BP 121 / 79; Pulse 83; Resp 17; Temp 97.0(TE); Pulse Ox 95% on R/A; Weight 72.57 kg; ss Height 5 ft. 10 in. (177.80 cm); Pain 0/10; 10:49 BP 106 / 70; Pulse 72; Resp 19; Pulse Ox 97% on 2 lpm NC; aa5 08:35 Body Mass Index 22.96 (72.57 kg, 177.80 cm) ss ED Course: 08:30 Patient arrived in ED. jl7 08:31 Marino Farris PA is PHCP. cp 08:31 Marino Regalado MD is Attending Physician. cp 08:33 Karime Puentes RN is Primary Nurse. jl7 08:38 Triage completed. ss 08:38 Arm band placed on right wrist. ss 08:45 Patient has correct armband on for positive identification. Bed in low position. Call jl7 light in reach. Side rails up X2. aircraft armament mechanic on. Pulse ox on. NIBP on. 08:45 Initial lab(s) drawn, by me, sent to lab. Maintain EMS IV. Dressing intact. Good blood jl7 return noted. Site clean \T\ dry. Gauge \T\ site: 18 left AC. 09:29 CT Head C Spine In Process Unspecified. EDMS 09:47 Pelvis XRAY In Process Unspecified. EDMS 09:47 XRAY Hip LEFT 2 view In Process Unspecified. EDMS 09:47 XRAY Hip RIGHT 2 view In Process Unspecified. EDMS 09:47 XRAY Chest (1 view) In Process Unspecified. EDMS 10:28 Denver Pereira DO is Hospitalizing Provider. cp 10:46 EKG done, by ED staff, reviewed by Marino STANLEY. aa5 12:40 Fredy Clemens MD is Referral Physician. cp 13:32 No provider procedures requiring assistance completed. IV discontinued, intact, ss bleeding controlled, No redness/swelling at site. Pressure dressing applied. Administered Medications: 09:12 Drug: D50W 50 ml Route: IVP; Site: left antecubital; jl7 10:05 Drug: Aspirin Chewable Tablet 324 mg Route: PO; jl7 Outcome: 10:30 Decision to Hospitalize by Provider. cp 12:42 Discharge ordered by . cp 13:32 Discharged to home ambulatory, via wheelchair. ss 13:32 Condition: stable 13:32 Discharge instructions given to patient, family, Instructed on discharge instructions, follow up and referral plans. Demonstrated understanding of instructions, follow-up care. 13:33 Patient left the ED. ss Signatures: Dispatcher [employer] Dipti Swanson RN RN aa5 Tawana Hernández RN RN ss Marino Farris PA PA cp Leal, Jahala, RN RN jl7 Corrections: (The following items were deleted from the chart) 09:12 09:11 General: Appears in no apparent distress. uncomfortable, Behavior is calm, jl7 cooperative, drowsy, jl7
--- NOTE | 2019-08-02 10:31 | EDPHYS ---
Physician Documentation [facility] Name: Vimal Matta Age: 78 yrs Sex: Male : 1940 Arrival Date: 08/02/2019 Time: 08:30 Bed 7 Private MD: ED Physician Marino Regalado HPI: 08/01 08:36 This 78 yrs old Male presents to ER via Unassigned with complaints of Fall, cp Low Blood Sugar. 08:36 Details of fall: The patient fell from an upright position, and struck wood laury. cp 08:36 Onset: The symptoms/episode began/occurred this morning. Associated injuries: The cp patient sustained left hip and right hip. EMS was called after family reported hearing patient fall next to bed this morning. Patient was unable to get up from floor and EMS reports patient's blood sugar was 54 upon arrival. Patient was given IV D10 250 mL. Historical: - Allergies: 08:38 No Known Allergies; ss - PMHx: 08:38 CHF; COPD; Diabetes - NIDDM; High Cholesterol; ss - PSHx: 08:38 Hernia repair; ss - Immunization history:: Adult Immunizations up to date. - Social history:: Smoking status: Patient denies any tobacco usage or history of. ROS: 08:36 Constitutional: Negative for fever. cp 08:36 Cardiovascular: Negative for chest pain, palpitations. 08:36 Respiratory: Negative for cough, shortness of breath, wheezing. 08:36 Abdomen/GI: Negative for abdominal pain, nausea, vomiting, and diarrhea. 08:36 MS/extremity: Positive for pain, of the left hip and right hip, Negative for decreased range of motion, deformity, paresthesias. 08:36 Skin: Negative for rash. 08:36 Neuro: Negative for altered mental status, headache. Exam: 08:40 Constitutional: The patient appears in no acute distress, alert, awake, cp non-diaphoretic, non-toxic, well developed, frail. 08:40 Head/Face: Normocephalic, atraumatic. cp 08:40 Eyes: Periorbital structures: appear normal, Pupils: equal, round, and reactive to light and accomodation, Extraocular movements: intact throughout, Conjunctiva: normal, no exudate, no injection, Sclera: no appreciated abnormality, Lids and lashes: appear normal, bilaterally. 08:40 ENT: External ear(s): are unremarkable, Nose: is normal, Mouth: Lips: moist, Oral mucosa: moist, Posterior pharynx: is normal, airway is patent, no erythema, no exudate. 08:40 Neck: C-spine: vertebral tenderness, is not appreciated, crepitus, is not appreciated, ROM/movement: Meningeal signs: are not present, nuchal rigidity, is not appreciated. 08:40 Chest/axilla: Inspection: normal, Palpation: is normal, no crepitus, no tenderness. 08:40 Cardiovascular: Rate: normal, Rhythm: regular, Edema: is not appreciated, JVD: is not appreciated. 08:40 Respiratory: the patient does not display signs of respiratory distress, Respirations: cp normal, no use of accessory muscles, no retractions, labored breathing, is not present, Breath sounds: are clear throughout, no decreased breath sounds, no stridor, no wheezing. 08:40 Abdomen/GI: Inspection: abdomen appears normal, Bowel sounds: active, all quadrants, cp Palpation: abdomen is soft and non-tender, in all quadrants, rebound tenderness, is not appreciated, voluntary guarding, is not appreciated, involuntary guarding, is not appreciated. 08:40 Back: vertebral tenderness, is not appreciated. 08:40 Skin: cellulitis, is not appreciated, no rash present. 08:40 Neuro: Orientation: to person, place \T\ time. Mentation: is normal, Cerebellar function: is grossly normal, Motor: moves all fours, strength is normal. 10:31 ECG was reviewed by the Attending Physician. cp Vital Signs: 08:35 BP 121 / 79; Pulse 83; Resp 17; Temp 97.0(TE); Pulse Ox 95% on R/A; Weight 72.57 kg; ss Height 5 ft. 10 in. (177.80 cm); Pain 0/10; 10:49 BP 106 / 70; Pulse 72; Resp 19; Pulse Ox 97% on 2 lpm NC; aa5 08:35 Body Mass Index 22.96 (72.57 kg, 177.80 cm) ss MDM: 08:33 Patient medically screened. cp 11:40 Data reviewed: vital signs, nurses notes, lab test result(s), EKG, radiologic studies, cp plain films, I have discussed the patient's presentation/case with the attending Emergency Department Physician;. 11:40 Counseling: I had a detailed discussion with the patient and/or guardian regarding: the cp historical points, exam findings, and any diagnostic results supporting the discharge/admit diagnosis, lab results, radiology results. 11:42 Physician consultation: Fredy Clemens MD was called at 11:43, was contacted at 11:43, cp will call back to discuss patient. 12:25 Physician consultation: Fredy Clemens MD was called at 12:20, was contacted at 12:20, cp regarding admission, to the telemetry unit. patient's condition, requests discharge to hospice care. 12:25 Response to treatment: the patient's symptoms have markedly improved after treatment. 08/01 08:32 Order name: Basic Metabolic Panel; Complete Time: 09:54 08/01 09:55 Interpretation: Normal except: CL 109; BUN 81; CRE 1.85; GFR 36; CA 8.2. 08/01 08:32 Order name: CBC with Diff; Complete Time: 09:54 08/01 08:56 Interpretation: Normal except: HGB 12.8; MCHC 31.7; RDW 18.5; MIRLANDE% 94.6; LYM% 1.4; LYMA cp 0.1. 08/01 08:32 Order name: LFT's; Complete Time: 09:54 08/01 09:54 Interpretation: Normal except: AST 61; ALK 186; BILIT 2.4; BILID 1.7. 08/01 08:32 Order name: Magnesium; Complete Time: 09:54 08/01 08:32 Order name: NT PRO-BNP; Complete Time: 09:54 08/01 09:54 Interpretation: Abnormal: NT PRO-BNP 95085. 08/01 08:32 Order name: PT-INR; Complete Time: 09:54 08/01 10:17 Interpretation: Abnormal. 08/01 08:32 Order name: Pelvis XRAY; Complete Time: 10:12 08/01 08:32 Order name: Troponin (emerg Dept Use Only); Complete Time: 09:54 08/01 09:55 Interpretation: Abnormal: TROPED 0.07. 08/01 08:38 Order name: Urine Microscopic Only; Complete Time: 12:38 08/01 09:38 Order name: CBC Smear Scan; Complete Time: 09:54 EDMS 08/01 10:14 Order name: Glucose, Ancillary Testing; Complete Time: 10:16 EDMS 08/01 10:25 Order name: Urine Dipstick--Ancillary (enter results); Complete Time: 10:28 em1 08/01 10:28 Order name: ETOH Level; Complete Time: 12:38 cp 08/01 11:42 Order name: Glucose, Ancillary Testing; Complete Time: 12:38 EDMS 08/01 08:32 Order name: XRAY Hip LEFT 2 view; Complete Time: 10:16 cp 08/01 10:16 Interpretation: Report reviewed. 08/01 08:32 Order name: XRAY Hip RIGHT 2 view; Complete Time: 10:16 cp 08/01 10:16 Interpretation: Report reviewed. 08/01 08:32 Order name: XRAY Chest (1 view); Complete Time: 10:12 08/01 10:12 Interpretation: Report review. 08/01 08:32 Order name: EKG; Complete Time: 08:34 cp 08/01 08:32 Order name: Cardiac monitoring; Complete Time: 09:14 cp 08/01 08:32 Order name: EKG - Nurse/Tech; Complete Time: 13:32 cp 08/01 08:32 Order name: IV Saline Lock; Complete Time: 09:14 cp 08/01 08:32 Order name: Labs collected and sent; Complete Time: 09:14 08/01 08:32 Order name: O2 Per Protocol; Complete Time: 09:14 08/01 08:32 Order name: O2 Sat Monitoring; Complete Time: 09:14 08/01 08:32 Order name: Accucheck Blood Glucose; Complete Time: 08:33 cp 08/01 08:38 Order name: Urine Dipstick-Ancillary (obtain specimen); Complete Time: 10:24 cp 08/01 08:56 Order name: CT Head C Spine; Complete Time: 10:12 08/01 10:17 Interpretation: Reviewed report. 08/01 09:10 Order name: Diet Regular; Complete Time: 09:10 aa5 08/01 09:57 Order name: Swallow Screen; Complete Time: 09:59 cp EC:31 Rate is 69 beats/min. Rhythm is regular. TN interval is prolonged at 226 msec. QRS cp interval is prolonged at 136 msec. QT interval is normal. T waves are Inverted in leads I, aVL, V5, V6. Interpreted by me. Reviewed by me. Administered Medications: 09:12 Drug: D50W 50 ml Route: IVP; Site: left antecubital; jl7 10:05 Drug: Aspirin Chewable Tablet 324 mg Route: PO; jl7 Disposition: 13:00 Chart complete. cp 08/02 13:23 Co-signature as Attending Physician, Marino Regalado MD I agree with the assessment and [facility] plan of care. Disposition: 08/02/19 12:42 Discharged to [facility]. Impression: Hypoglycemia, unspecified, Other and unspecified fall on same level, Elevated Troponin. - Condition is Stable. - Discharge Instructions: Hypoglycemia, Blood Glucose Monitoring, Adult. - Medication Reconciliation Form, Thank You Letter, Antibiotic Education, Prescription Opioid Use form. - Follow up: Fredy Clemens MD; When: As needed; Reason: Recheck today's complaints. - Problem is new. - Symptoms have improved. Signatures: Dispatcher [employer] EDMS Marino Regalado MD MD cha Smirch, Shelby, RN RN ss Zoltan Kaiser, SUPERVISOR [employer]-C SUPERVISOR [employer]1 Marino Farris PA PA cp Leal, Jahala RN RN jl7 Corrections: (The following items were deleted from the chart) 08/01 09:12 08:36 EMS was called after family reported hearing patient fall next to bed this morning. Patient was unable to get up from floor and EMS reports patient's blood sugar was 54 upon arrival. Patient was given IV dextrose 250 mL. cp 09:55 09:54 Normal except: CL 109; BUN 81; CRE 1.85; GFR 36. cp cp 10:40 10:30 Hospitalization Ordered by Denver Pereira DO for Observation. Preliminary cp diagnosis is Hypoglycemia, unspecified; Fall on same level, unspecified; Elevated Troponin. Bed requested for Telemetry/MedSurg (observation). Status is Observation. Condition is Stable. Problem is new. Symptoms have improved. cp 13:33 12:42 08/02/2019 12:42 Discharged to Other. Impression: Hypoglycemia, unspecified; ss Other and unspecified fall on same level; Elevated Troponin. Condition is Stable. Forms are Medication Reconciliation Form, Thank You Letter, Antibiotic Education, Prescription Opioid Use. Follow up: Fredy Clemens; When: As needed; Reason: Recheck today's complaints. Problem is new. Symptoms have improved. cp
[2019-08-02 11:21] LABS: Urine Bacteria <20 /HPF (NONE SEEN); Urine Culture Reflex Order NOT NEEDED; Urine Mucus SLIGHT /HPF (NONE SEEN); Urine RBC <5 /HPF (NONE SEEN)
[2019-08-02 13:38] VITALS: TEMP 97
[2019-08-02 13:39] VITALS: BP 106/70; O2SAT 97
--- NOTE | 2019-08-03 07:27 | EKG ---
Test Date: 2019-08-02 Test Time: 10:29:20 Pearl Fisherman: BEENA MEASUREMENT RESULTS: Intervals: Rate: 69 WY: 226 QRSD: 136 QT: 436 QTc: 467 [place]: P: 102 WY: 226 QRS: -37 T: 118 INTERPRETIVE STATEMENTS: Sinus rhythm with 1st degree AV block with occasional premature ventricular complexes and premature atrial complexes Left axis deviation Nonspecific intraventricular block Cannot rule out Anteroseptal infarct, age undetermined T wave abnormality, consider lateral ischemia Abnormal ECG Compared to ECG 06/30/2019 08:52:14 Atrial premature complex(es) now present Ventricular premature complex(es) now present First degree AV block now present Left-axis deviation now present T-wave abnormality now present ST (T wave) deviation no longer present Myocardial infarct finding still present Possible ischemia still present Electronically Signed On 08-03-19 07:24:20 CDT by Daniel Gutierrez
== END 2019-08-02 13:33 | disposition home or self-care (01) ==
LOC: ER 08:25
DX: E11.649 Type 2 diabetes mellitus with hypoglycemia without coma (principal); R79.89 Other specified abnormal findings of blood chemistry; M25.552 Pain in left hip; M25.551 Pain in right hip; W06.XXXA Fall from bed, initial encounter; Y93.9 Activity, unspecified; Y92.9 Unspecified place or not applicable
CPT/HCPCS: 36415; 70450; 71045; 72125; 72170; 80048; 80076; 80320; 81003; 81015; 82947; 83735; 83880; 84484; 85025; 85610; 93005; 96374; 99284